=== PATIENT | female | born 1985 | race Caucasian/White ===

== ENCOUNTER 2020-01-11 16:27 | Emergency (ER) | payer MEDICAID, SELFPAY ==
[2020-01-11 16:46] VITALS: BP 128/80; PULSE 92; RESP 16; TEMP 37.6; O2SAT 100
--- NOTE | 2020-01-11 16:58 | ED.DENTAL ---
HPI - Dental/Oral General Chief complaint: Dental/Oral Stated complaint: TOOTH PAIN Time Seen by Provider: 01/11/20 16:58 Source: patient and RN notes reviewed Mode of arrival: ambulatory Limitations: no limitations History of Present Illness HPI Narrative: This is a 34 years old female presents to the office for an evaluation of dental pain for a couple days. Patient states her with the same tooth that has been bothering her however she thinks, she chipped it after she ate. She does not have a dentist at the moment. She tried Advil for pain with no relief. Related Data Home Medications Medication Instructions Recorded Confirmed albuterol sulfate [Ventolin HFA] 1 inh INHALATION QID 01/11/20 01/11/20 Allergies Allergy/AdvReac Type Severity Reaction Status Date / Time No Known Allergies Allergy Verified 01/11/20 17:00 Review of Systems Review of Systems: Narrative: CONSTITUTIONAL: Denies fever or chills ENT: Reports dental pain CARDIOVASCULAR: Denies chest pain, palpitation, edema. RESPIRATORY: Denies dyspnea, wheezing, cough GASTROINTESTINAL: Denies abdominal pain, nausea, vomiting. Reports no appetite due to dental pain SKIN: Denies rash MUSCULOSKELETAL: Denies acute back pain NEUROLOGIC: Denies lightheaded All other systems reviewed are negative, except as documented in HPI. [facility] Past Medical History Medical History Asthma Social History Social History Smoking status: Current every day smoker Gender identity (if verbalized by the patient): Female Comments At time of signature, I agree with nursing past medical, surgical, social and family history. There is no relevant family history pertinent to the presenting complaint. Exam Narrative: Exam Narrative: GENERAL: This is a well-nourished, well-developed patient, in no apparent distress. EYES: Sclera and conjunctivae normal ENT: External ears normal. Nose and lips normal. Airway patent.The right lower first molar is very carious and the gum is swollen and tender around it. There is slight right side facial swelling without cervical or submandibular lymphadenopathy. The patient appears uncomfortable and in pain. CARDIOVASCULAR: Regular rate and rhythm without murmurs, gallops, or rubs. RESPIRATORY: Clear to auscultation. Breath sounds equal bilaterally. No wheezes, rales, or rhonchi. GASTROINTESTINAL: Abdomen soft, non-tender, nondistended. Bowel sounds are active. No hepato-splenomegaly, or palpable masses. No guarding. SKIN: warm, intact with no suspicious lesions or rash, good texture and turgor. NEURO: awake, alert, and oriented to person, place and time. There were no obvious focal neurologic abnormalities. Course Vital Signs Vital signs: Vital Signs Temperature 99.7 F H 01/11/20 16:46 Pulse Rate 92 01/11/20 16:46 Respiratory Rate 16 01/11/20 16:46 Blood Pressure 128/80 01/11/20 16:46 Pulse Oximetry 100 01/11/20 16:46 Temperature 99.7 F H 01/11/20 16:46 Pulse Rate 92 01/11/20 16:46 Respiratory Rate 16 01/11/20 16:46 Blood Pressure 128/80 01/11/20 16:46 Pulse Oximetry 100 01/11/20 16:46 MDM - Dental/Oral MDM Narrative Medical decision making narrative: Discharge instructions reviewed with patient, as well as provided in writing per nursing staff. The instructions also include specific and strict return/GO TO THE ER as well as f/u information. All questions have been answered, and the patient deny any further questions with discharge and discharge plan. Differential Diagnosis Differential diagnosis: Likely gingival abscess, dental caries, toothache, dental abscess, fracture of tooth and aphthous ulcer Critical Care Time Critical Care Time Critical Care Time: No Discharge Plan Discharge Clinical Impression: Toothache Patient Disposition: Home, Self-Care Condition: Stable I
== END 2020-01-11 17:08 | disposition home or self-care (01) ==
PROVIDERS: Emergency Provider Nurse Practitioner
DX: K08.9 Disorder of teeth and supporting structures, unspecified (principal); F17.200 Nicotine dependence, unspecified, uncomplicated; J45.909 Unspecified asthma, uncomplicated
CPT/HCPCS: 99213; G0463

== ENCOUNTER 2020-05-05 12:32 | Outpatient (CLI) | payer OTHER, SELFPAY ==
[2020-05-05 13:02] LABS: Hematocrit 39.1 % (37.0-47.0); Hemoglobin 13.7 g/dL (12.0-15.0)
== END 2020-05-05 12:33 | disposition home or self-care (01) ==
LOC: ANHLAB 12:34
PROVIDERS: Visit Provider Obstetrics & Gynecology
DX: R10.2 Pelvic and perineal pain (principal)
CPT/HCPCS: 36415; 85014; 85018; 86850; 86900; 86901

== ENCOUNTER 2020-05-09 04:03 | Outpatient (CLI) | payer OTHER, SELFPAY ==
[2020-05-09 19:05] LABS: SARS-CoV-2 RNA PCR Negative
== END 2020-05-09 04:04 | disposition home or self-care (01) ==
LOC: ANHCOVIDDT 04:03
PROVIDERS: Visit Provider Obstetrics & Gynecology
DX: Z01.812 Encounter for preprocedural laboratory examination (principal); Z20.828 Contact with and (suspected) exposure to other viral communicable diseases
CPT/HCPCS: 87635; C9803; U0003

== ENCOUNTER 2020-05-11 01:01 | Day surgery (SDC) | payer OTHER, SELFPAY ==
[2020-05-04 11:46] VITALS: BMI 26.9
--- NOTE | 2020-05-09 07:56 | PM.IMHP ---
H&P: HPI History of Present Illness Date/Time: 05/09/20 07:56 Chief complaint: Pelvic Pain,Endometriosis, Uterine Fibroid Narrative: Natasha Lin is a 34 year old female is admitted for diagnostic laparoscopy hysteroscopy dilatation curettage. She complains of chronic and severe pelvic pain. Irregular periods. She has a known history of endometriosis and uterine fibroid. Risks and benefits reviewed in full Review of Systems Review of Systems: All systems reviewed & are unremarkable except as noted in HPI and below PMFSH Past Medical History Medical History Asthma Social History Social History Smoking packs per day: 1 Smoking cigarettes per day: 20.0 Years smoked: 15 Smoking pack-years: 15.00 Smoking status: Current every day smoker Tobacco type: cigarettes Alcohol intake: current Drinks per week: 2 Gender identity (if verbalized by the patient): Female Spiritual care concerns: No Meds Home Medications and Allergies Home Medications Medication Instructions Recorded Confirmed Type albuterol sulfate [Ventolin HFA] 1 inh INHALATION QID PRN 01/11/20 05/04/20 History lidocaine HCl [Lidocaine Viscous] 1 applic MUCOUS MEM QID PRN #100 ml 01/11/20 05/04/20 Rx hydrocodone-acetaminophen 1 - 2 tablet PO Q4H 05/04/20 05/04/20 History Allergies Allergy/AdvReac Type Severity Reaction Status Date / Time No Known Allergies Allergy Verified 05/04/20 11:48 Exam Const: General: no acute distress Eyes: General: appearance normal, both eyes and all related structures Neck: Neck: supple and no JVD Thyroid: thyroid normal Resp: Effort & Inspection: normal respiratory effort Auscultation: clear to auscultation bilaterally Cardio: Rate: regular rate Rhythm: regular rhythm GI: Inspection: non-distended GI Palp: Yes Soft to palpation, No Tenderness to palpation present (GI) and No Guarding due to palpation present (GI) Auscultation: normal bowel sounds : General: Yes bladder normal to palpation External Female Exam: normal external appearance Speculum Exam - Vagina: normal vaginal discharge and No vaginal bleeding Speculum Exam - Cervix: Cervical os closed and nontender Bimanual exam- vagina & uterus: bladder normal to palpation, No Cervical tenderness present and Uterine tenderness Bimanual Exam- Adnexa, other: tender OB/external & speculum: No vaginal bleeding Skin: General skin exam: no rashes or lesions noted Extrem: General: normal to inspection and no edema Psych: Mental Status: mental status grossly normal Affect: normal affect Assessment and Plan Additional Plan impression: Pelvic pain and bleeding layer Plan: Laparoscopy/hysteroscopy / dilatation and curettage
[2020-05-11] VITALS (10 sets, daily range): BP systolic 99–135; BP diastolic 56–77; PULSE 59–96; RESP 12–18; TEMP 36.7–37.4; O2SAT 94–100
--- NOTE | 2020-05-11 06:38 | WPDHPUPDATE1 ---
History and Physical Update Update Date/Time: 05/11/20 06:38 History and Physical has been reviewed, including an updated exam of the patient. There are NO changes in the patient's condition. Risks, benefits, and alternatives have been discussed and questions answered. Patient agrees to proceed with procedure.
--- NOTE | 2020-05-11 06:39 | WPDHPUPDATE1 ---
History and Physical Update Update Date/Time: 05/11/20 06:39 History and Physical has been reviewed, including an updated exam of the patient. There are NO changes in the patient's condition. Risks, benefits, and alternatives have been discussed and questions answered. Patient agrees to proceed with procedure.
--- NOTE | 2020-05-11 08:25 | WPDANESEPPF ---
Anes - Initial Pre Proc Eval Procedure: Operation Date: 05/11/20 09:30 Proposed Procedures p Diagnostic Laparoscopy, Hysteroscopy, Dilation And Curettage - Spenser Arechiga MD Date/Time: 05/11/20 08:25 Surgeon: Spenser Arechiga MD Pre Op Diagnosis: Pelvic Pain,Endometriosis, Uterine Fibroid Patient Data Age: 34 Gender: F Height: 5 ft 5 in Weight: 73.48 kg Allergies Allergy/AdvReac Type Severity Reaction Status Date / Time No Known Allergies Allergy Verified 05/04/20 11:48 Home Medications Medication Instructions Recorded Confirmed Type albuterol sulfate [Ventolin HFA] 1 inh INHALATION QID PRN 01/11/20 05/04/20 History lidocaine HCl [Lidocaine Viscous] 1 applic MUCOUS MEM QID PRN #100 ml 01/11/20 05/04/20 Rx hydrocodone-acetaminophen 1 - 2 tablet PO Q4H 05/04/20 05/04/20 History hydrocodone-acetaminophen 1 tablet PO Q6H PRN #30 tablet 05/11/20 Rx Patient hx anesthesia problems: none Family hx anesthesia problems: none PMFSH Past Medical History Medical History Asthma Smoker Surgical History Surgical History (Updated 05/11/20 @ 08:25 by Spenser Noland MD) H/O laparoscopy Social History Social History Smoking packs per day: 1 Smoking cigarettes per day: 20.0 Years smoked: 15 Smoking pack-years: 15.00 Smoking status: Current every day smoker Tobacco type: cigarettes Alcohol intake: current Drinks per week: 2 Gender identity (if verbalized by the patient): Female Spiritual care concerns: No Anes - Eval Final PreProcedure Day of Procedure 05/11/20 08:25 Patient weight: overweight Heart: regular rate and rhythm Lungs: clear to auscultation Airway: Mallampati scale class II Neurological: alert and oriented Last oral intake: >/= 8 hours ASA classification: II Emergent: no Anesthetic plan: proceed Anesthesia type and monitoring: general ETT and standard monitoring Informed Consent: The patient's anesthetic plan and its attendant risks and benefits were discussed with the patient/family/POA. Questions were solicited and answers provided to the satisfaction of the patient/family/POA.
[2020-05-11] MEDS: LACTATED RINGERS 1,000 ML 30 ML IV CONT (08:26)
[2020-05-11] MEDS: KETOROLAC 15 MG/ML VIAL (*BKC) IV PUSH (08:27)
[2020-05-11] MEDS: ACETAMINOPHEN 500 MG TABLET 1000 MG PO (08:27)
[2020-05-11] MEDS: fentaNYL CITRATE INJ (*CRX) 100 MCG/2 ML VIAL 50 MCG IV PUSH (09:25)
--- NOTE | 2020-05-11 09:52 | P.OP_ITS ---
Procedure Note - Detailed Date of procedure: 05/11/20 Pre-op diagnosis: Pelvic Pain,Endometriosis, Uterine Fibroid Surgeon: Spenser Arechiga MD Postop diagnosis: Pelvic pain / endometriosis/ uterine fibroids/ bilateral ovarian cysts / bleeding refractory to medical therapy Procedure: Laparoscopy/ destruction of bilateral ovarian cysts/destruction of endometriosis / hysteroscopy/ dilatation curettage Anesthesia: General endotracheal EBL: 5Cc Complications: None Findings: On laparoscopy: Bilateral ovarian endometriosis was seen. Benign ovarian cysts on each ovary. Tubes were status post tubal ligation bilaterally. Moderate size fibroid uterus was seen. Powder burn endometriosis lesion on the left uterus sacral. There was normal-appearing gallbladder and liver edge. On hysteroscopy: Thick irregular endometrial tissue was seen. Each fallopian tube os could be seen was normal Description procedure. : The patient was prepped draped in the normal sterile fashion placed in the dorsal lithotomy position. Under excellent general tracheal anesthesia weighted speculum placed in posterior fornix of vagina. Anterior lip of the cervix was grasped with a single-tooth tenaculum. The Corona's cannula was inserted to the cervix and attached to the single-tooth. Bladder was emptied of about 25cc of gretel colored urine. The remainder the instruments removed. Gloves were changed. Infraumbilical incision was made. The Veress needle was passed in the abdomen. The abdomen was filled with CO2 gas [id number]. 5Mm trocar was advanced under direct visualization in the abdomen assuring no injury the patient placed in Trendelenburg. A suprapubic incision made the 5mm trocar advanced in the a bdomen under direct visualization assuring injury the above findings were seen irrigation was undertaken. The areas of endometriosis on each ovary were cauterized at 35 w per 2nd with monopolar cautery. The endometrial implant on the left uterus sacral ligament was burned and 35 w per 2nd with excellent desiccation. Irrigation was undertaken until clear after the ovaries were opened other small benign ovarian cyst. No other abnormalities were seen in photo documentation was had been undertaken. The lower site was removed after gas removed from the abdomen. The upper site was then removed. The incisions closed with 4 O Monocryl and glue. The hysteroscopic portion was undertaken by sounded the uterus to 8cm. Serial dilatation with fragmented dilators performed, this was followed by passage of the 5mm hysteroscope using normal saline as visualizing medium. Thick irregular endometrial tissue was seen but no definitive pathology was seen. Each fallopian tube os could be seen. The uterus was then scraped over the entire 360? removing a moderate amount of clot tissue. When a good grating sound was heard the procedure was terminated. The instruments removed from vagina. Blood loss was estimated 25cc. The patient was awakened and went to recovery in satisfactory condition. All sponge, needle, instrument counts were correct. There were no immediate complications
--- NOTE | 2020-05-11 09:55 | SUR.OPER ---
Ebl=5ml
[2020-05-11] MEDS: fentaNYL CITRATE INJ (*CRX) 100 MCG/2 ML VIAL 25 MCG IV PUSH ×3 (10:03→10:12)
[2020-05-11] MEDS: HYDROmorphone HCL INJ (*CRX) 1 MG/ML SYR 0.5 MG IV PUSH ×5 (10:18→10:49)
[2020-05-11] MEDS: oxyCODONE HCL (*CRX) 5 MG TAB IR PO (11:12)
== END 2020-05-11 12:25 | disposition home or self-care (01) ==
PROVIDERS: Visit Provider Obstetrics & Gynecology
PROC: 0UDB8ZZ Extraction of Endometrium, Via Natural or Artificial Opening Endoscopic (ICD-10-PCS; CPT 58558; principal; 2020-05-11 09:30)
DX: R10.2 Pelvic and perineal pain (principal); D25.9 Leiomyoma of uterus, unspecified; N83.202 Unspecified ovarian cyst, left side; N83.201 Unspecified ovarian cyst, right side; N93.9 Abnormal uterine and vaginal bleeding, unspecified; N80.3 Endometriosis of pelvic peritoneum; J45.909 Unspecified asthma, uncomplicated; F17.210 Nicotine dependence, cigarettes, uncomplicated
CPT/HCPCS: 58558; 58662; 88305; A9270; J0330; J1100; J1170; J1885; J2250; J2590; J2704; J3010; J7030; J7120

== ENCOUNTER 2020-07-21 12:46 | Outpatient (CLI) | payer OTHER, SELFPAY ==
[2020-07-21 13:24] LABS: Hematocrit 38.1 % (37.0-47.0); Hemoglobin 13.5 g/dL (12.0-15.0)
== END 2020-07-21 12:47 | disposition home or self-care (01) ==
PROVIDERS: Visit Provider Obstetrics & Gynecology
DX: Z01.818 Encounter for other preprocedural examination (principal); N93.9 Abnormal uterine and vaginal bleeding, unspecified
CPT/HCPCS: 36415; 85014; 85018; 86850; 86900; 86901

== ENCOUNTER 2020-07-24 00:34 | Outpatient (CLI) | payer OTHER, SELFPAY ==
[2020-07-24 19:42] LABS: SARS-CoV-2 RNA PCR Negative
== END 2020-07-24 00:35 | disposition home or self-care (01) ==
LOC: ANHCOVIDDT 00:34
PROVIDERS: Visit Provider Obstetrics & Gynecology
DX: Z01.812 Encounter for preprocedural laboratory examination (principal); Z20.822 Contact with and (suspected) exposure to COVID-19
CPT/HCPCS: C9803; U0003

== ENCOUNTER 2020-07-27 00:16 | Day surgery (SDC) | payer OTHER, SELFPAY ==
[2020-07-17 13:00] VITALS: BMI 26.6
--- NOTE | 2020-07-25 09:01 | PM.IMHP ---
H&P: HPI History of Present Illness Date/Time: 07/25/20 09:01 Chief Complaint: pain/bleeding Narrative: Natasha Lin is a 35 year old female 1 para 1 status post tubal ligation is admitted for robotic total vaginal hysterectomy left salpingo-oophorectomy and right salpingectomy. She has an enlarged uterus with bleeding and fibroids that had been refractory to medical therapy. There is also a large left ovarian cyst risks and benefits reviewed including but not exclusive of , aspiration pneumonia, bleeding, transfusion, perforation injury to bowel, bladder, ureters, or other internal organs with need for open laparotomy. She received the [employer] handout entitled hysterectomy as well as div eg handout. She signed the [facility] department of [facility] hysterectomy formed. She had all questions answered. She asked to proceed Review of Systems Review of Systems: All systems reviewed & are unremarkable except as noted in HPI and below PMFSH Past Medical History Medical History Asthma Smoker Surgical History Surgical History H/O laparoscopy Social History Social History Smoking packs per day: 1 Smoking cigarettes per day: 20.0 Years smoked: 16 Smoking pack-years: 16.00 Smoking status: Current every day smoker Tobacco type: cigarettes Alcohol intake: never Drinks per week: 2 Substance use: never Gender identity (if verbalized by the patient): Female Spiritual care concerns: No Meds Home Medications and Allergies Home Medications Medication Instructions Recorded Confirmed Type albuterol sulfate [Ventolin HFA] 1 inh INHALATION PRN PRN 01/11/20 07/17/20 History hydrocodone-acetaminophen 1 - 2 tablet PO Q4H 05/04/20 07/17/20 History lidocaine HCl [Lidocaine Viscous] 1 applic MUCOUS MEM PRN PRN 07/17/20 07/17/20 History Allergies Allergy/AdvReac Type Severity Reaction Status Date / Time No Known Allergies Allergy Verified 07/17/20 13:14 Exam Const: General: no acute distress Eyes: General: appearance normal, both eyes and all related structures Neck: Neck: supple and no JVD Thyroid: thyroid normal Resp: Effort & Inspection: normal respiratory effort Auscultation: clear to auscultation bilaterally Cardio: Rate: regular rate Rhythm: regular rhythm GI: Inspection: non-distended GI Palp: Yes Soft to palpation, No Tenderness to palpation present (GI) and No Guarding due to palpation present (GI) Auscultation: normal bowel sounds : General: Yes bladder normal to inspection External Female Exam: normal external appearance Speculum Exam - Vagina: normal appearance of the vagina Speculum Exam - Cervix: normal appearance of the cervix Bimanual exam- vagina & uterus: boggy, cervical motion tenderness and enlarged Bimanual Exam- Adnexa, other: tender (left ) on the left Skin: General skin exam: no rashes or lesions noted Extrem: General: normal to inspection and no edema Psych: Mental Status: mental status grossly normal Affect: normal affect Assessment and Plan Additional Plan impression: Enlarged uterus fibroids and left ovarian cyst Plan: Robotic total vaginal hysterectomy right salpingectomy and left salpingo-oophorectomy
[2020-07-27] VITALS (17 sets, daily range): BP systolic 101–126; BP diastolic 51–83; PULSE 58–88; RESP 12–20; TEMP 36.8–37.5; O2SAT 93–100
--- NOTE | 2020-07-27 06:10 | WPDHPUPDATE1 ---
History and Physical Update Update Date/Time: 07/27/20 06:10 History and Physical has been reviewed, including an updated exam of the patient. There are NO changes in the patient's condition. Risks, benefits, and alternatives have been discussed and questions answered. Patient agrees to proceed with procedure.
[2020-07-27] MEDS: ACETAMINOPHEN 500 MG TABLET 1000 MG PO (07:55)
--- NOTE | 2020-07-27 07:56 | WPDANESEPPF ---
Anes - Initial Pre Proc Eval Procedure: Operation Date: 07/27/20 09:30 Proposed Procedures p Robotic Assisted Total Vaginal Hysterectomy, Left Salpingo-Oophorectomy, Right Salpingectomy - Spenser Arechiga MD Date/Time: 07/27/20 07:56 Surgeon: Spenser Arechiga MD Pre Op Diagnosis: Pelvic Pain, Enlarged Uterus, Fibroid,L Ovarian Cy Patient Data Age: 35 Gender: F Height: 1.65 m Weight: 74 kg Allergies Allergy/AdvReac Type Severity Reaction Status Date / Time No Known Allergies Allergy Verified 07/27/20 07:51 Home Medications Medication Instructions Recorded Confirmed Type albuterol sulfate [Ventolin HFA] 1 inh INHALATION PRN PRN 01/11/20 07/27/20 History hydrocodone-acetaminophen 1 - 2 tablet PO Q4H 05/04/20 07/27/20 History hydrocodone-acetaminophen [[place]] 1 tablet PO Q4H PRN #30 tablet 07/27/20 Rx Patient hx anesthesia problems: none Family hx anesthesia problems: none PMFSH Past Medical History Medical History Anxiety Asthma Endometriosis Smoker Surgical History Surgical History (Updated 07/26/20 @ 11:54 by Eron Mckenna DO) H/O laparoscopy History of tubal ligation Social History Social History Smoking packs per day: 1 Smoking cigarettes per day: 20.0 Years smoked: 16 Smoking pack-years: 16.00 Smoking status: Current every day smoker Tobacco type: cigarettes Alcohol intake: never Drinks per week: 2 Substance use: never Living arrangements: with family Gender identity (if verbalized by the patient): Female Spiritual care concerns: No Anes - Eval Final PreProcedure Day of Procedure 07/27/20 07:56 Patient weight: overweight Heart: regular rate and rhythm Lungs: clear to auscultation and normal air movement Airway: Mallampati scale class II Neurological: alert and oriented Last oral intake: >/= 8 hours ASA classification: III Emergent: no Anesthetic plan: proceed Anesthesia type and monitoring: general ETT and standard monitoring Informed Consent: The patient's anesthetic plan and its attendant risks and benefits were discussed with the patient/family/POA. Questions were solicited and answers provided to the satisfaction of the patient/family/POA.
[2020-07-27] MEDS: LACTATED RINGERS 1,000 ML 30 ML IV CONT ×2 (08:04→10:18)
[2020-07-27] MEDS: KETOROLAC 15 MG/ML VIAL (*BKC) IV PUSH (08:06)
[2020-07-27] MEDS: fentaNYL CITRATE INJ (*CRX) 100 MCG/2 ML VIAL 25 MCG IV PUSH ×5 (08:09→11:14)
--- NOTE | 2020-07-27 08:20 | SUR.PREOP ---
pt anxious and complains abd pain dr estrella aware,fentanyl given without relief, versed given,
[2020-07-27] MEDS: MIDAZOLAM HCL (*CRX) 2 MG/2 ML VIAL IV PUSH (08:24)
[2020-07-27] MEDS: ceFAZolin 2 GM/D5W 50 ML 2 GM/50 ML BAG IVPB (08:53)
--- NOTE | 2020-07-27 10:05 | P.OP_ITS ---
Procedure Note - Detailed Date of procedure: 07/27/20 Pre-op diagnosis: Pelvic Pain, Enlarged Uterus, Fibroid,L Ovarian Cy Surgeon: Spenser Arechiga MD Postop diagnosis: Pelvic pain/enlarged uterus/uterine fibroid/left ovarian cyst Procedure: Robotic total vaginal hysterectomy and right salpingectomy, left s alpingo-oophorectomy EBL: 250cc Anesthesia: General endotracheal Complications: None Findings: Enlarged uterus, left ovarian cyst. Tubes status post tubal ligation Procedure description: The patient was prepped and draped in the normal sterile fashion and placed in the dorsal lithotomy position. Under excellent general endotracheal anesthesia weighted speculum was placed in the posterior fornix of vagina. The anterior lip of the cervix was grasped with a single-tooth tenaculum and the uterus sounded to 10cm. Serial dilatation with fragmented dilators performed followed by passage of the 8. NATE and the 3. Cold cup. A 16 Cym[place] catheter was placed. The weighted speculum was removed. The gloves were changed. A supraumbilical incision made in the Veress needle passed in the abdomen. The abdomen filled with CO2 gas [id number]. The 8mm trocar advanced in the abdomen and the downside visualized. No injury was seen. The patient placed in Trendelenburg and right and left lateral quadrant incisions made. The 8mm trocars advanced under direct visualization with no injury. A right upper quadrant incision made in the 10mm trocar advanced under direct visualization with no injury. The robot was docked. Attention was turned to the child welfare counselor. The left round ligament was grasped, burned, cut. A bladder flap was formed by sharply dissecting and reflecting it caudally to the opposite round ligament which was clamped, burned, cut. Next the left infundibulopelvic structure was skeletonized to remove the left ovary and tube this was clamped, burned, cut. This was brought to the level of previously cut round ligament. Next the right fallopian tube was sharply dissected to its origin in the uterus to be taken with that specimen. The right utero-ovarian ligament to conserve the right ovary was clamped, burned, cut and brought to the level of previously cut round ligament. The cardinal and broad ligaments were then serially skeletonized on the left down lateral edge of the uterus they were clamped, burned, cut. These were brought until the tortuous large blood vessels on the left were visualized these were individually clamped, burned, cut. In like fashion the cardinal and broad ligaments on the right were serially skeletonized. These were clamped, burned, cut and brought down the lateral edge of the uterus. Uterine vessels on the right were also large and tortuous and individually clamped, burned, cut. Blanching of the uterus was seen. A colpotomy incision was made and the cervix uterus tubes and left ovary removed through the vagina. Blood loss estimated 250cc. The vagina was closed with continuous running 0V lock from lateral edge to lateral edge back to the midline. Irrigation undertaken until clear. The raw surface area then sprink led with hematuria. Hemostasis was assured. The robot was undocked. The gas removed from the abdomen. The trocars then removed. The incisions closed with 4 Monocryl glue. The patient was awakened. All sponge, needle, instrument counts were correct. There were no immediate complications
[2020-07-27] MEDS: MIDAZOLAM HCL (*CRX) 2 MG/2 ML VIAL 1 MG IV PUSH (10:28)
[2020-07-27] MEDS: DEXTROSE 5%/LACTATED RINGERS 1,000 ML 125 ML IV CONT (12:07)
[2020-07-27] MEDS: MORPHINE SULFATE (*CRX) 4 MG/ML INJ IV PUSH (12:11)
--- NOTE | 2020-07-27 12:24 | ADMGEN ---
This patient, Natasha Lin, was admitted to OB 2nd Floor Room 289-00. Patient oriented to hospital policies and general routines including ID bracelet, bed and alarms, visiting hours, pain management, procedures, bathroom and other care routines, personal items, smoking policy, room service/diet, and visiting hours. Information on how to activate the Rapid Response Team has been discussed. Patient/Family are encouraged to report perceived risks to care and to ask questions if they do not understand what they are told or what they should do.
[2020-07-27] MEDS: DOCUSATE SODIUM 100 MG CAPSULE PO (17:04)
[2020-07-27] MEDS: IBUPROFEN 600 MG TABLET PO (17:07)
[2020-07-27] MEDS: HYDROcodone/acetaminophen (*CRX) 10-325 MG TABLET 1 TAB PO ×2 (17:07→19:54)
--- NOTE | 2020-07-27 19:18 | P.DS_ITS ---
DS: Admitting Diagnosis Admitting Diagnosis Admitting Diagnosis: bleeding/pain DS: Summary Hospital Course Hospital Course: Her hospital course was unremarkable Time Spent with Patient Time attestation: Total time spent providing and/or coordinating discharge services: The patient was admitted for robotic total vaginal hysterectomy and bilateral salpingectomy. Her hospital course was unremarkable. She remained afebrile. Vital signs were stable. She was up, voiding without difficulty, passing gas, eating, and generally without complaints. I had suggested that she stay to the morning but she insisted she would like to go home tonight. She was discharged home and given routine discharge instructions. Exam Const: General: no acute distress Eyes: General: appearance normal, both eyes and all related structures Neck: Neck: supple and no JVD Thyroid: thyroid normal Resp: Effort & Inspection: normal respiratory effort Auscultation: clear to auscultation bilaterally Cardio: Rate: regular rate Rhythm: regular rhythm GI: Inspection: non-distended GI Palp: Yes Soft to palpation, No Tenderness to palpation present (GI) and No Guarding due to palpation present (GI) Auscultation: normal bowel sounds : General: Yes bladder normal to palpation External Female Exam: normal external appearance Speculum Exam - Vagina: normal vaginal discharge and No vaginal bleeding Speculum Exam - Cervix: nontender Bimanual exam- vagina & uterus: bladder normal to palpation and No Cervical tenderness present OB/ext ernal & speculum: No vaginal bleeding Skin: General skin exam: no rashes or lesions noted Extrem: General: normal to inspection and no edema Psych: Mental Status: mental status grossly normal Affect: normal affect DS: Data Data Completed and Pending Pending studies at discharge: Pending at discharge 07/27/20 09:35 Surgical [PTH] Routine Discharge Plan Discharge Patient Disposition: Home, Self-Care Stand Alone Forms: General Discharge Instructions Follow-up/Referrals: Spenser Arechiga MD [Physician] - Discharge Medications: New hydrocodone-acetaminophen [Brutus] 5-325 mg tablet 1 tablet PO Q4H PRN (Reason: pain) Qty: 30 RF: 0 Continued albuterol sulfate [Ventolin HFA] 90 mcg/actuation Hfa Aerosol Inhaler 1 inh INHALATION PRN PRN (Reason: Shortness Of Breath) RF: 0 hydrocodone-acetaminophen 5-325 mg tablet 1 - 2 tablet PO Q4H RF: 0
== END 2020-07-27 20:28 | disposition home or self-care (01) ==
LOC: ANHSURGERY 10:28 → ANHOB2 11:29
PROVIDERS: Visit Provider Obstetrics & Gynecology
PROC: (CPT 58552; principal; 2020-07-27 09:30)
DX: N93.9 Abnormal uterine and vaginal bleeding, unspecified (principal); N80.1 Endometriosis of ovary; N83.12 Corpus luteum cyst of left ovary; F17.210 Nicotine dependence, cigarettes, uncomplicated; Z79.51 Long term (current) use of inhaled steroids; N73.6 Female pelvic peritoneal adhesions (postinfective)
CPT/HCPCS: 58552; S2900; 88307; 99199; A9270; J0690; J1100; J1170; J1200; J1885; J2250; J2270; J2405; J2704; J2710; J3010; J7030; J7120; J7121

== ENCOUNTER 2022-01-31 00:45 | Day surgery (SDC) | payer OTHER, SELFPAY ==
[2022-01-17 13:08] VITALS: BMI 26.4
--- NOTE | 2022-01-30 15:37 | WPDANESEPPF ---
Anes - Initial Pre Proc Eval Procedure: Operation Date: 01/31/22 12:30 Proposed Procedures p Colonoscopy - Manuel Mantilla MD Date/Time: 01/30/22 15:37 Surgeon: Manuel Mantilla MD Pre Op Diagnosis: stomach pain, chronic diarrhea Patient Data Age: 36 Gender: F Height: 1.65 m Weight: 72 kg Allergies Allergy/AdvReac Type Severity Reaction Status Date / Time No Known Allergies Allergy Verified 01/31/22 11:17 Home Medications Medication Instructions Recorded Confirmed Type albuterol sulfate 90 mcg/actuation 1 inh inhalation PRN PRN Shortness 01/11/20 01/31/22 History aerosol inhaler (Ventolin HFA) Of Breath Patient hx anesthesia problems: none Family hx anesthesia problems: none Results Review: All pre-operative results and documents have been reviewed as part of the pre-operative evaluation. [facility] Past Medical History Medical History Anxiety Asthma Endometriosis Smoker Surgical History Surgical History (Updated 07/26/20 @ 11:54 by Eron Mckenna DO) H/O laparoscopy History of tubal ligation Social History Social History Smoking packs per day: 0.5 Smoking cigarettes per day: 10.0 Years smoked: 17 Smoking pack-years: 8.50 Smoking status: Current every day smoker Tobacco type: cigarettes Alcohol intake: current Drinks per week: 2 Substance use: never Substance use type: does not use Living arrangements: with friend(s) Additional living arrangements comments: boyfriend and daughter Gender identity (if verbalized by the patient): Female Spiritual care concerns: No Anes - Eval Final PreProcedure Day of Procedure 01/30/22 15:37 Patient weight: overweight Heart: regular rate and rhythm Lungs: clear to auscultation Airway: Mallampati scale class II Neurological: alert and oriented Last oral intake: >/= 8 hours ASA classification: II Emergent: no Anesthetic plan: proceed Anesthesia type and monitoring: general GIVS and standard monitoring Results Review: All pre-operative results and documents have been reviewed as part of the pre-operative evaluation. Informed Consent: The patient's anesthetic plan and its attendant risks and benefits were discussed with the patient/family/POA. Questions were solicited and answers provided to the satisfaction of the patient/family/POA.
[2022-01-31 11:18] VITALS: BP 132/87; PULSE 73; RESP 17; TEMP 36.2; O2SAT 100
[2022-01-31] MEDS: LACTATED RINGERS 1,000 ML 150 ML IV CONT (11:27)
--- NOTE | 2022-01-31 12:36 | PM.HPGS ---
History of Present Illness History of Present Illness Consent: Risks, benefits, and alternatives have been discussed and questions answered. Patient agrees to proceed with procedure. Chief complaint: stomach pain, chronic diarrhea Narrative: Natasha Lin is a 36 year old female with intermittent abdominal pain, worse after hysterectomy (it was done because endometriosis), also loose stools. Never had colonoscopy Review of Systems Constitutional: Constitutional: Denies headache(s) and Denies weakness Eyes: Eyes: Denies blurry vision ENT: Reports Normal hearing present, Denies headache(s) and Denies neck pain Cardiovascular: Cardiovascular: Denies chest pain and Denies dyspnea Respiratory: Respiratory: Denies dyspnea Gastrointestinal: Gastrointestinal: Reports no additional gastrointestinal complaints Genitourinary: Genitourinary: Denies dysuria Musculoskeletal: Musculoskeletal: Denies neck pain Integumentary/Breasts: Skin/Breast: Denies dry skin Neurologic: Reports Normal hearing present, Denies headache(s) and Denies weakness Psychiatric: Psychiatric: Denies anxiety Endocrine: Endocrine: Denies change in body appearance Hematologic/Lymphatic: Hematologic/Lymphatic: Denies easy bleeding Allergic/Immunologic: Allergic/Immunologic: Denies urticaria PMFSH Past Medical History Medical History Abdominal pain Anxiety Asthma Diarrhea Endometriosis Smoker Surgical History Surgical History (Updated 07/26/20 @ 11:54 by Eron Mckenna DO) H/O laparoscopy History of tubal ligation Social History Social History Smoking packs per day: 0.5 Smoking cigarettes per day: 10.0 Years smoked: 17 Smoking pack-years: 8.50 Smoking status: Current every day smoker Tobacco type: cigarettes Alcohol intake: current Drinks per week: 2 Substance use: never Substance use type: does not use Living arrangements: with friend(s) Additional living arrangements comments: boyfriend and daughter Gender identity (if verbalized by the patient): Female Spiritual care concerns: No Meds Home Medications and Allergies Home Medications Medication Instructions Recorded Confirmed Type albuterol sulfate 90 mcg/actuation 1 inh inhalation PRN PRN Shortness 01/11/20 01/31/22 History aerosol inhaler (Ventolin HFA) Of Breath Allergies Allergy/AdvReac Type Severity Reaction Status Date / Time No Known Allergies Allergy Verified 01/31/22 11:17 Vital Signs Vital Signs - 24 hr 01/31/22 11:18 Temperature 97.2 F L Pulse Rate 73 Respiratory Rate 17 Blood Pressure 132/87 Pulse Oximetry 100 Oxygen Delivery Room Air Exam Const: General: comfortable and no acute distress HENMT: General nose exam: Normal nares present Eyes: General: appearance normal, both eyes and all related structures Neck: Neck: no JVD Resp: Auscultation: clear to auscultation bilaterally Cardio: Rate: regular rate Rhythm: regular rhythm GI: Inspection: non-distended GI Palp: Yes Soft to palpation Skin: General skin exam: normal color Neuro: General: gait normal Speech: normal speech Extrem: General: normal to inspection Psych: Mental Status: mental status grossly normal Assessment and Plan Assessment and plan (1) Abdominal pain: Code(s): R10.9 - Unspecified abdominal pain Status: Acute Assessment and Plan: will assess with colonoscopy and consider random colon bx (2) Diarrhea: Code(s): R19.7 - Diarrhea, unspecified Status: Acute
[2022-01-31 13:08] VITALS: BP 127/85; PULSE 64; RESP 15; O2SAT 100
[2022-01-31 13:18] VITALS: BP 124/81; PULSE 53; RESP 19; O2SAT 100
[2022-01-31 13:28] VITALS: BP 112/77; PULSE 52; RESP 16; O2SAT 100
== END 2022-01-31 13:40 | disposition home or self-care (01) ==
PROVIDERS: PCP Family Medicine; Referring Provider Obstetrics & Gynecology; Visit Provider Internal Medicine Gastroenterology
PROC: 0DJD8ZZ Inspection of Lower Intestinal Tract, Via Natural or Artificial Opening Endoscopic (ICD-10-PCS; CPT 45378; principal; 2022-01-31 12:30)
DX: R10.30 Lower abdominal pain, unspecified (principal); R19.7 Diarrhea, unspecified; K64.8 Other hemorrhoids; J45.909 Unspecified asthma, uncomplicated; Z79.51 Long term (current) use of inhaled steroids; F17.210 Nicotine dependence, cigarettes, uncomplicated
CPT/HCPCS: 45380; 88305; J2704; J7120

== ENCOUNTER 2022-10-17 17:27 | Observation (INO) | payer OTHER, SELFPAY ==
[2022-10-17] VITALS (17 sets, daily range): BP systolic 90–128; BP diastolic 66–93; PULSE 82–127; RESP 9–26; TEMP 36.6; O2SAT 93–100
--- NOTE | ~2022-10-17 | XR_ITS ---
EXAMINATION: XR hand LT min 3V INDICATION: Left hand pain TECHNIQUE: Three views of the left hand are obtained. COMPARISON: None available FINDINGS: No fracture, dislocation, or subluxation. The bones, soft tissues, and joint spaces are nor mal. IMPRESSION: 1. No acute osseous abnormality. Reviewed, dictated and finalized at location F.
--- NOTE | ~2022-10-17 | XR_ITS ---
EXAMINATION: XR hand RT min 3V INDICATION: Right hand pain TECHNIQUE: Three views of the right hand are obtained. COMPARISON: None available FINDINGS: No fracture, dislocation, or subluxation. The bones, soft tissues, and joint spaces are nor mal. IMPRESSION: 1. No acute osseous abnormality. Reviewed, dictated and finalized at location F.
--- NOTE | 2022-10-17 17:59 | ED.ANIMALBIT ---
HPI - Animal Bite General Chief Complaint: Animal Bite <DAVID Sousa Last Filed: 10/17/22 23:45> Stated Complaint: allergic rx <DAVID Sousa Last Filed: 10/17/22 23:45> Time Seen by Provider: 10/17/22 17:41 <DAVID Sousa Last Filed: 10/17/22 23:45> History of Present Illness HPI narrative: Patient is a 37-year-old female here after her cat bit both of her hands earlier today. Patient states that she was playing with her cat and it bit both of her hands about 4 hours prior to arrival. Since the bite she has noticed pain, swelling, nausea and states that she feels generally unwell. Denies any fevers or chills, difficulty moving the hands, vomiting. She attempted Ekaterina without relief of her symptoms. <DAVID Sousa Last Filed: 10/17/22 23:45> Related Data Home Medications: Home Medications Medication Instructions Recorded Confirmed albuterol sulfate 90 mcg/actuation 1 inh inhalation PRN PRN Shortness 01/11/20 01/31/22 aerosol inhaler (Ventolin HFA) Of Breath <DAVID Sousa Last Filed: 10/17/22 23:45> Allergies/Adverse Reactions: Allergies Allergy/AdvReac Type Severity Reaction Status Date / Time cat dander Allergy Swelling Verified 10/17/22 17:39 of the Eye <DAVID Sousa Last Filed: 10/17/22 23:45> Review of Systems Review of Systems: Gen: Denies fevers or chills Eyes: Denies eye pain or visual change ENT: Denies congestion Respiratory: Denies shortness of breath or cough CV: Denies chest pain or palpitations GI: Reports nausea. Denies abdominal pain nausea, emesis or diarrhea : denies burning, urgency, frequency or hematuria Musculoskeletal: Reports pain to hands. Denies back pain or muscle pain Neuro: Denies numbness, tingling, weakness or focal weakness Skin: Denies rash Except as documented, all other systems reviewed and negative <Charisma Handy PA-C - Last Filed: 10/17/22 23:45> PMFSH Past Medical History Medical History: Medical History Abdominal pain Anxiety Asthma Diarrhea Endometriosis Smoker <Charisma Handy PA-C - Last Filed: 10/17/22 23:45> Surgical History Surgical History: Surgical History H/O laparoscopy History of tubal ligation <Charisma Handy PA-C - Last Filed: 10/17/22 23:45> Social History Social History: Social History Smoking packs per day: 0.5 Smoking cigarettes per day: 10.0 Years smoked: 17 Smoking pack-years: 8.50 Smoking status: Current every day smoker Tobacco type: cigarettes Alcohol intake: current Drinks per week: 2 Substance use: never Substance use type: does not use Living arrangements: with friend(s) Additional living arrangements comments: boyfriend and daughter Gender identity (if verbalized by the patient): Female Spiritual care concerns: No <Charisma Handy PA-C - Last Filed: 10/17/22 23:45> Exam Narrative: APPEARANCE: Well appearing, no pain in distress, well-nourished. Head: Normocephalic and atraumatic. EYES: PERRLA/EOMI, conjunctivae clear NOSE: No nasal drainage EARS: External ear normal in appearance THROAT: Oropharynx is clear. Mucous membranes are moist. NECK: Supple. No adenopathy, no masses. RESPIRATORY: Airway patent, respirations nonlabored. Clear to auscultation bilaterally, no rales, rhonchi, wheezing. CARDIOVASCULAR: Regular rate and rhythm without murmurs, rubs, or gallops. ABDOMINAL: Normoactive bowel sounds. Soft, nontender, nondistended. No rebound tenderness or guarding. MUSCULOSKELETAL: Extremities are warm and well-perfused. Moves all extremities well. No edema. NEURO: Normal speech. No focal neurologic deficits. SKIN: Patient has multiple small puncture wounds to both hands at the thenar em
[2022-10-17] MEDS: ONDANSETRON INJ 4 MG/2 ML VIAL IV PUSH (18:12)
[2022-10-17] MEDS: methylPREDNISolone SOD SUCC 125 MG VIAL IV PUSH (18:12)
[2022-10-17] MEDS: diphenhydrAMINE HCl INJ 50 MG/ML VIAL 25 MG IV PUSH (18:12)
[2022-10-17] MEDS: FAMOTIDINE 20 MG/2 ML VIAL 40 MG IV PUSH (18:13)
[2022-10-17] MEDS: HYDROcodone/acetaminophen (*CRX) 5-325 MG TABLET 1 TAB PO (19:13)
--- NOTE | 2022-10-17 19:18 | PC.NURSE ---
Patient report given to DYLAN Burks. All questions answered and care of patient transferred.
[2022-10-17] MEDS: SODIUM CHLORIDE 0.9% IV 1,000 ML 999 ML IV CONT (19:54)
[2022-10-17] MEDS: AMPICILLIN SULB 3 GM/NS 100 ML 3 GM/100 ML VIAL IVPB (19:55)
[2022-10-17] MEDS: TETANUS,DIPHTHERIA,AC PERTUSSIS ADULT (0.5 ML) BOOSTRIX IM (19:55)
[2022-10-17 20:18] LABS: Basophils Absolute Auto 0.1 K/mm3 (0.0-0.1); Basophils Percent Auto 0.4 % (0.2-1.2); Eosinophils Percent Auto 0.2 % (0-4.4); Hemoglobin 15.1 g/dL (12.0-15.0); Immature Granulocyte Absolute 0.04 K/mm3 (0.00-0.031); Immature Granulocyte Percent A 0.3 % (0-0.5); Lymphocytes Absolute Auto 0.66 K/mm3 (0.9-3.2); Lymphocytes Percent Auto 5.2 % (18.3-44.2); Mean Corpuscular Hemoglobin 33.9 pg (26-34); Mean Corpuscular Volume 94.4 fl (80-100); Mean Platelet Volume 9.8 fl (7.4-10.4); Monocytes Absolute Auto 0.4 K/mm3 (0.1-0.6); Monocytes Percent Auto 3.5 % (2.6-8.5); Neutrophils Absolute Auto 11.5 K/mm3 (1.3-6.7); Neutrophils Percent Auto 90.4 % (45.5-73.1); Platelet Count Result 150 k/mm3 (150-375); Red Blood Count 4.45 M/mm3 (4.2-5.4); Red Cell Distribution Width 12.8 % (11.5-14.5); White Blood Count 12.7 K/mm3 (4.5-10.0)
[2022-10-17 20:29] LABS: Alanine Aminotransferase 34 U/L (6-35); Albumin Level 4.7 g/dL (3.5-5.1); Alkaline Phosphatase 54 U/L (38-126); Anion Gap 10 mmol/L (8-16); Aspartate Amino Transferase 31 U/L (14-36); Bilirubin,Total 0.9 mg/dL (0.2-1.3); Blood Urea Nitrogen 11 mg/dL (7-17); Calcium 9.6 mg/dL (8.4-10.2); Carbon Dioxide 21 mmol/L (22-30); Chloride 103 mmol/L (98-107); Estimated CRCL calculation 117 ml/min; Estimated Glomerular Filt Rate > 60; Glucose 104 mg/dL (65-110); Lactic Acid Reflex 1.2 mmol/L (0.7-2.0); Potassium 3.7 mmol/L (3.4-5.0); Sodium 134 mmol/L (137-145)
[2022-10-17] MEDS: KETOROLAC 15 MG/ML VIAL (*BKC) IV PUSH (21:26)
[2022-10-18 00:29] VITALS: BMI 27.9
[2022-10-18 00:35] VITALS: BP 127/96; PULSE 75; RESP 18; TEMP 36.5; O2SAT 98
[2022-10-18 00:36] VITALS: BMI 27.9
--- NOTE | 2022-10-18 00:40 | ADMGEN ---
This patient, Natasha Lin, was admitted to 3 [facility] Room 300-01. Patient/family oriented to hospital policies and general routines including ID bracelet, bed and alarms, visiting hours, pain management, procedures, bathroom and other care routines, personal items, smoking policy, room service/diet, and visiting hours. Information on how to activate the Rapid Response Team has been discussed. Patient/Family are encouraged to report perceived risks to care and to ask questions if they do not understand what they are told or what they should do.
[2022-10-18] MEDS: AMPICILLIN SULB 3 GM/NS 100 ML 3 GM/100 ML VIAL IVPB ×5 (00:51→23:48)
[2022-10-18] MEDS: ACETAMINOPHEN 325 MG TABLET 650 MG PO ×2 (00:58→08:02)
[2022-10-18] MEDS: diphenhydrAMINE HCl CAP 25 MG CAPSULE PO ×3 (00:58→22:40)
[2022-10-18] MEDS: KETOROLAC 30 MG/ML VIAL (*BKC) IV PUSH ×2 (03:10→11:17)
[2022-10-18 05:25] VITALS: BP 99/64; PULSE 57; RESP 18; TEMP 36.2; O2SAT 98
[2022-10-18 09:10] VITALS: O2SAT 98
[2022-10-18] MEDS: predniSONE 20 MG TABLET 40 MG PO (11:47)
--- NOTE | 2022-10-18 11:48 | PM.SD2 ---
Same Day Admit/Disch: HPI History of Present Illness Chief complaint: cellulitis with lymphangitis Narrative: Natasha Lin is a 37 year old female with past medical history significant for abdomen and endometriosis presented to ED On 10/17/2022 with chief complaint of allergic reaction. patient stated that she had started her CT and a it proceeded to bite her both of her hands. The the CT head that her 2 times on the left-hand and 2 times on the right hand. Patient stated most immediately after the bite her hands, arms, face, tongue, ears all swelled and stated that she did have some difficulty breathing. Patient also had diffuse reddening of the skin, nausea and vomiting during this time. patient has never had a reaction like this to anything before. She stated that she waited for her fiance to get home where he saw her and had given her and Ekaterina which did not help any of her symptoms. her fiance then called his mother and his mother brought her into the ED where she was then treated. While in the ED it was noted that the patient had a actively bleeding puncture wounds bilaterally on her hands as well as diffuse erythema on the bilateral upper extremities associated with itching, no hives or rash noted. Patient's respiratory exam in the ER revealed a clear oropharynx and patent airway with nonlabored breathing. Patient was admitted due to lymphangitis streaking up the bite wounds on both hands although this was not seen at the time my evaluation. Patient received Unasyn x1 in the ED and that seemed to improve her left ulnar and lymphangitis. Patient's white count was 12.7 but lactic was negative. X-rays were negative for osseous and foreign body involvement. Patient's tetanus was updated patient was started on Augmentin. When I evaluated the patient she appeared to be very emotional and states that she really wanted to go home. During evaluation there was mild swelling of patient's hands but no erythema or lymphangitis noted on exam. No signs of infection or the beginnings of infection were noted at the site puncture wound. Patient does have pain in her hands but otherwise no complaints. She denies nausea, vomiting, diarrhea, headache, dizziness, shortness of breath, difficulty breathing, chest pain, body aches, chills and fever. I discussed the risks and benefits with the patient and she is agreeable and wanting to be discharged. On discharge the patient on steroids and Augmentin and advised to follow-up with her primary care in approximately 5 days to assess her wounds. I will also be discharging the patient with an EpiPen in case she were to be bit again. [facility] Past Medical History Medical History Abdominal pain Anxiety Asthma Diarrhea Endometriosis Smoker Surgical History Surgical History H/O laparoscopy History of tubal ligation Family History Family History (Updated 10/18/22 @ 12:05 by Pennie Guerrero PA-C) Grandparent Diabetes mellitus Hypertension Heart disease Mother Hypertension Lung cancer Sibling Depression Father Brain aneurysm Other Lung cancer Other Cerebrovascular accident Social History Social History (Updated 10/18/22 @ 12:07 by Pennie Guerrero PA-C) Social History: Patient lives in a house with her fianc? and daughter. Patient lives at home with 1 dog and 1 cat. She has a every day smoker with a 10 cigarettes a day for approximately 20 years, she is a social drinker and denies drug use. Smoking packs per day: 0.5 Smoking cigarettes per day: 10.0 Years smoked: 17 Smoking pack-years: 8.50 Smoking status: Current every day smoker Tobacco type: cigarettes Alcohol intake: current Drinks per week: 5 Substance use: never Substance use type: does not use Lack of Transportation: No Lack of Food: Never True Current Housing: I Have Housing Concerned About Future Housing: No Difficulty [place]
[2022-10-18 11:53] LABS: Hematocrit 38.3 % (37.0-47.0); Hemoglobin 13.3 g/dL (12.0-15.0); Mean Corpuscular HGB Conc 34.7 g/dl (32-36); Mean Corpuscular Hemoglobin 33.7 pg (26-34); Mean Platelet Volume 10.3 fl (7.4-10.4); Platelet Count Result 158 k/mm3 (150-375); Red Blood Count 3.95 M/mm3 (4.2-5.4); White Blood Count 13.7 K/mm3 (4.5-10.0)
[2022-10-18 12:06] LABS: Anion Gap 9 mmol/L (8-16); Blood Urea Nitrogen 11 mg/dL (7-17); Calcium 8.7 mg/dL (8.4-10.2); Carbon Dioxide 24 mmol/L (22-30); Chloride 102 mmol/L (98-107); Estimated CRCL calculation 112 ml/min; Estimated Glomerular Filt Rate > 60; Glucose 196 mg/dL (65-110); Potassium 3.8 mmol/L (3.4-5.0); Sodium 135 mmol/L (137-145)
--- NOTE | 2022-10-18 12:21 | PM.IMHP ---
H&P: HPI History of Present Illness Date/Time: 10/18/22 12:21 Chief Complaint: Cat bite, allergic reaction Narrative: Natasha Lin is a 37 year old female with past medical history significant for abdomen and endometriosis presented to ED On 10/17/2022 with chief complaint of allergic reaction. patient stated that she had started her CT and a it proceeded to bite her both of her hands. The the CT head that her 2 times on the left-hand and 2 times on the right hand. Patient stated most immediately after the bite her hands, arms, face, tongue, ears all swelled and stated that she did have some difficulty breathing. Patient also had diffuse reddening of the skin, nausea and vomiting during this time. patient has never had a reaction like this to anything before. She stated that she waited for her fiance to get home where he saw her and had given her and Ekaterina which did not help any of her symptoms. her fiance then called his mother and his mother brought her into the ED where she was then treated. While in the ED it was noted that the patient had a actively bleeding puncture wounds bilaterally on her hands as well as diffuse erythema on the bilateral upper extremities associated with itching, no hives or rash noted. Patient's respiratory exam in the ER revealed a clear oropharynx and patent airway with nonlabored breathing. Patient was admitted due to lymphangitis streaking up the bite wounds on both hands although this was not seen at the time my evaluation. Patient received Unasyn x1 in the ED and that seemed to improve her left ulnar and lymphangitis. Patient's white count was 12.7 but lactic was negative. X-rays were negative for osseous and foreign body involvement. Patient's tetanus was updated patient was started on Augmentin. When I evaluated the patient she appeared to be very emotional and states that she really wanted to go home. During evaluation there was mild swelling of patient's hands but no erythema or lymphangitis noted on exam. No signs of infection or the beginnings of infection were noted at the site puncture wound. Patient does have pain in her hands but otherwise no complaints. She denies nausea, vomiting, diarrhea, headache, dizziness, shortness of breath, difficulty breathing, chest pain, body aches, chills and fever. I discussed the risks and benefits with the patient and she is agreeable and wanting to be discharged. On discharge the patient on steroids and Augmentin and advised to follow-up with her primary care in approximately 5 days to assess her wounds. I will also be discharging the patient with an EpiPen in case she were to be bit again. Review of Systems Review of Systems: All systems reviewed & are unremarkable except as noted in HPI and below PMFSH Past Medical History Medical History Abdominal pain Anxiety Asthma Diarrhea Endometriosis Smoker Surgical History Surgical History H/O laparoscopy History of tubal ligation Family History Family History Grandparent Diabetes mellitus Hypertension Heart disease Mother Hypertension Lung cancer Sibling Depression Father Brain aneurysm Other Lung cancer Other Cerebrovascular accident Social History Social History Social History: Patient lives in a house with her fianc? and daughter. Patient lives at home with 1 dog and 1 cat. She has a every day smoker with a 10 cigarettes a day for approximately 20 years, she is a social drinker and denies drug use. Smoking packs per day: 0.5 Smoking cigarettes per day: 10.0 Years smoked: 17 Smoking pack-years: 8.50 Smoking status: Current every day smoker Tobacco type: cigarettes Alcohol intake: current Drinks per week: 5 Substance use: never Substance use type: does not use Lack of Transportat
[2022-10-18 14:00] VITALS: BP 128/66; PULSE 66; RESP 18; TEMP 36.2; O2SAT 97
[2022-10-18] MEDS: HYDROcodone/acetaminophen (*CRX) 7.5-325 MG TABLET 1 TAB PO ×3 (14:37→22:36)
--- NOTE | 2022-10-18 15:11 | WPDCN ---
Assessment and Plan Assessment and plan (1) Cellulitis of skin with lymphangitis: Code(s): L03.90 - Cellulitis, unspecified Status: Acute Assessment and Plan: I believe the patient has responded well to treatment for the allergy and the initial cellulitis and reported lymphangitis. She did have an increase in white count and blood glucose today. She is tender to active motion of the digits. (2) Allergic reaction: Code(s): T78.40XA - Allergy, unspecified, initial encounter Status: Acute Plan Due to the mechanism of injury which has a high rate of morbidity. I would recommend keeping her here tonight, continuing her IV antibiotics until morning. Check morning white count. I will try to see her in the morning and likely she could be discharged on an Augmentin. If there is an urgent need for her bed please let me know. She could be discharged, we would see her in the office on Thursday. HPI Data of Consult Date/Time: 10/18/22 15:11 Requesting Physician: Jasmin Meyers DO Primary Care Provider: FOLDER SEAMER PHYSICIAN Consult Narrative Reason for consult: Cat bite to both hands with cellulitis Narrative: Natasha Lin is a 37 year old female who was admitted last evening with cat bite punctures over the bilateral dorsal thumbs. She had erythema swelling and pain in both hands and reported lymphangitis. This was also associated with swelling redness in her mouth on her face and ears. The bites were sustained at the mouth of her cat who was startled. The patient came to the ER within hours of the event because of the facial and hand swelling. White count was 12, her serum glucose was normal initially but climbed 196 this morning. She has been afebrile. In the emergency room she was treated with Benadryl and Unasyn. It appeared she responded fairly rapidly to that intervention. X-rays of the hands were normal. Her facial swelling and hand erythema is resolved today. She has she has slight swelling of her hands and some tenderness particularly in the dorsal thumbs. She is reluctant to try to flex her thumbs. The puncture wounds are quite small and did not show surrounding erythema or induration. There is no evidence of subcutaneous phlegmon or abscess formation. She showed me a picture from her phone of 1 hand at the time of admission. That condition is completely resolved with the exception of the small puncture sites and tenderness with active range of motion. The puncture sites except for 1 do not lie over joints. PMFSH Past Medical History Medical History Abdominal pain Anxiety Asthma Diarrhea Endometriosis Smoker Surgical History Surgical History H/O laparoscopy History of tubal ligation Family History Family History Grandparent Diabetes mellitus Hypertension Heart disease Mother Hypertension Lung cancer Sibling Depression Father Brain aneurysm Other Lung cancer Other Cerebrovascular accident Social History Social History Social History: Patient lives in a house with her fianc? and daughter. Patient lives at home with 1 dog and 1 cat. She has a every day smoker with a 10 cigarettes a day for approximately 20 years, she is a social drinker and denies drug use. Smoking packs per day: 0.5 Smoking cigarettes per day: 10.0 Years smoked: 17 Smoking pack-years: 8.50 Smoking status: Current every day smoker Tobacco type: cigarettes Alcohol intake: current Drinks per week: 5 Substance use: never Substance use type: does not use Lack of Transportation: No Lack of Food: Never True Current Housing: I Have Housing Concerned About Future Housing: No Difficulty Paying Gas/Electric Bills: No Difficulty Paying for Meds: No Currently Unemployed: No Educat
[2022-10-18 21:24] VITALS: BP 105/61; PULSE 52; RESP 18; TEMP 36.4; O2SAT 98
[2022-10-19 05:11] VITALS: BP 100/54; PULSE 41; RESP 18; TEMP 36.6; O2SAT 99
[2022-10-19] MEDS: HYDROcodone/acetaminophen (*CRX) 7.5-325 MG TABLET 1 TAB PO ×2 (06:19→11:46)
[2022-10-19] MEDS: AMPICILLIN SULB 3 GM/NS 100 ML 3 GM/100 ML VIAL IVPB ×2 (06:20→12:10)
[2022-10-19 06:25] LABS: Basophils Percent Auto 0.4 % (0.2-1.2); Eosinophils Percent Auto 0.3 % (0-4.4); Hematocrit 33.9 % (37.0-47.0); Hemoglobin 11.4 g/dL (12.0-15.0); Immature Granulocyte Absolute 0.06 K/mm3 (0.00-0.031); Immature Granulocyte Percent A 0.8 % (0-0.5); Immature Platelet Fraction Pct 6.9 % (0.9-11.2); Lymphocytes Absolute Auto 1.68 K/mm3 (0.9-3.2); Lymphocytes Percent Auto 23.1 % (18.3-44.2); Mean Corpuscular HGB Conc 33.6 g/dl (32-36); Mean Corpuscular Hemoglobin 32.9 pg (26-34); Mean Platelet Volume 10.6 fl (7.4-10.4); Monocytes Absolute Auto 0.5 K/mm3 (0.1-0.6); Monocytes Percent Auto 7.2 % (2.6-8.5); Neutrophils Percent Auto 68.2 % (45.5-73.1); Platelet Count Result 112 k/mm3 (150-375); Red Blood Count 3.46 M/mm3 (4.2-5.4); Red Cell Distribution Width 13.1 % (11.5-14.5); White Blood Count 7.3 K/mm3 (4.5-10.0)
[2022-10-19 06:36] LABS: Alanine Aminotransferase 23 U/L (6-35); Albumin Level 3.7 g/dL (3.5-5.1); Alkaline Phosphatase 35 U/L (38-126); Anion Gap 3 mmol/L (8-16); Aspartate Amino Transferase 22 U/L (14-36); Bilirubin,Total 0.4 mg/dL (0.2-1.3); Blood Urea Nitrogen 13 mg/dL (7-17); Calcium 8.2 mg/dL (8.4-10.2); Carbon Dioxide 32 mmol/L (22-30); Chloride 101 mmol/L (98-107); Estimated CRCL calculation 112 ml/min; Estimated Glomerular Filt Rate > 60; Glucose 124 mg/dL (65-110); Potassium 3.7 mmol/L (3.4-5.0); Sodium 136 mmol/L (137-145)
[2022-10-19] MEDS: diphenhydrAMINE HCl CAP 25 MG CAPSULE PO (08:08)
--- NOTE | 2022-10-19 08:47 | WPDPN ---
Progress Note: A&P Assessment and Plan (1) Cellulitis of skin with lymphangitis: Code(s): L03.90 - Cellulitis, unspecified Status: Acute Assessment and Plan: Responded to Unasyn, Benadryl . Discharge home on oral antibiotics 7 days. No dressings. Normal activity as tolerated. F/U with Dr Valladares on Thursday or Thursday. (2) Allergic reaction: Code(s): T78.40XA - Allergy, unspecified, initial encounter Status: Acute Subjective Date/time seen: 10/19/22 08:47 Interval history: Has been elevating hands. Seems apprehensive when requested to move thumbs. Exam Narrative: No erythema or puffiness. 1 mm puncture sites are scabbed. Able to touch thumb to finger tips. Actively extends thumbs. Tolerates direct palpation, again with apprehension. WBC 7.3, glucose ~120. Objective Data Vital Signs Vital Signs: Vital Signs - 24 hr 10/18/22 09:10 10/18/22 14:00 10/18/22 21:24 Temperature 97.2 F L 97.6 F Pulse Rate 66 52 L Respiratory Rate 18 18 Blood Pressure 128/66 105/61 Pulse Oximetry 98 97 98 Oxygen Delivery Room Air 10/19/22 05:11 Temperature 97.9 F Pulse Rate 41 L Respiratory Rate 18 Blood Pressure 100/54 L Pulse Oximetry 99 Oxygen Delivery Intake/Output Intake/Output: Intake & Output 10/16/22 10/17/22 10/18/22 10/19/22 23:59 23:59 23:59 23:59 Intake Total 1100 2276 500 Balance 1100 2276 500 Meds/Results Medications: Active Medications Generic Name Dose Route Start Last Admin Trade Name Freq PRN Reason Stop Dose Admin Acetaminophen 650 mg 10/17/22 22:48 10/18/22 08:02 Acetaminophen 325 Mg Tablet PO 650 mg Q4H PRN Administration Mild Pain (1-3) or Fever Hydrocodone Bitart/Acetaminophen 1 tab 10/18/22 14:15 10/19/22 06:19 Hydrocodone/Acetaminophen (*Crx) 7.5-325 Mg Tablet PO 1 tab Q4H PRN Administration Pain Rated 7-10 Diphenhydramine HCl 25 mg 10/17/22 22:48 10/19/22 08:08 Diphenhydramine Hcl Cap 25 Mg Capsule PO 25 mg Q6H PRN Administration Itching Ampicillin Sodium/Sulbactam Sodium 3 gm in 100 mls @ 200 mls/hr 10/18/22 01:00 10/19/22 08:08 Unasyn 3 Gm/Ns 100 Ml IVPB Infused Q6HR DAVID Infusion Ketorolac Tromethamine 30 mg 10/18/22 02:42 10/18/22 11:17 Ketorolac 30 Mg/Ml Vial (*Bkc) IV PUSH 30 mg Q6H PRN Administration Pain Rated 4-6 Ondansetron HCl 4 mg 10/17/22 22:48 Ondansetron Inj 4 Mg/2 Ml Vial IV PUSH Q4H PRN Nausea Prednisone 40 mg 10/19/22 08:00 Prednisone 20 Mg Tablet PO DAILY@0800 [facility] Radiology Results: ITS Impressions Hand X-Ray 10/17/22 22:12 IMPRESSION: 1. No acute osseous abnormality. Labs Labs: Laboratory Results - last 24 hr 10/18/22 10/18/22 10/19/22 11:44 11:44 06:02 WBC 13.7 H 7.3 RBC 3.95 L 3.46 L Hgb 13.3 11.4 L Hct 38.3 33.9 L MCV 97.0 98.0 MCH 33.7 32.9 MCHC 34.7 33.6 RDW 13.0 13.1 Plt Count 158 112 L MPV 10.3 10.6 H Immature Gran % (Auto) 0.8 H Neut % (Auto) 68.2 Lymph % (Auto) 23.1 [place] % (Auto) 7.2 Eos % (Auto) 0.3 Baso % (Auto) 0.4 Lymph # (Auto) 1.68 [place] # (Auto) 0.5 Eos # (Auto) 0.0 Baso # (Auto) 0.0 Abs Immat Gran (auto) 0.06 H Absolute Neuts (auto) 5.0 Absolute Nucleated RBC 0.0 Nucleated RBC % 0.0 % Immature Plt Fraction 6.9 Sodium 135 L Potassium 3.8 Chloride 102 Carbon Dioxide 24 Anion Gap 9 BUN 11 Creatinine 0.60 L Estim Creat Clear Calc 112 Estimated GFR > 60 Glucose 196 H Calcium 8.7 Total Bilirubin AST ALT Alkaline Phosphatase Total Protein Albumin 10/19/22 06:02 WBC RBC Hgb Hct MCV MCH MCHC RDW Plt Count MPV Immature Gran % (Auto) Neut % (Auto) Lymph % (Auto) [place] % (Auto) Eos % (Auto) Baso % (Auto) Lymph # (Auto) [place] # (Auto) Eos # (Auto) Baso # (Auto) Abs Immat Gran (auto) Abs
--- NOTE | 2022-10-19 11:57 | PM.DS ---
DS: Admitting Diagnosis Discharge Date 10/19/22 Admitting Diagnosis cat bite. DS: Discharge Diagnosis Discharge Diagnosis (1) Cat bite of hand: Code(s): S61.459A - Open bite of unspecified hand, initial encounter; W55.01XA - Bitten by cat, initial encounter Status: Acute Assessment and Plan: Patient presented to the ED with 7 puncture wounds in total due to cat bite. There was evidence of possible beginnings of lymphadenitis on exam in the ED and the patient admitted in this setting. Patient started on Unasyn and bilateral ulnar streaking resolved Tetanus shot given Blood cultures pending X-ray of the hands with no osseous abnormality or foreign body present. Elevated white count at 12.7 in the ED and repeat labs at 13.7. Due to puncture wounds involving hands plastic surgery consulted 4/ WBC in normal range. Will follow blood cultures. Follow up with Plastics as an outpatient. (2) Allergic reaction: Code(s): T78.40XA - Allergy, unspecified, initial encounter Status: Acute Assessment and Plan: Patient presented to the ED with bilateral swelling and erythema to the arms. The patient states that she also had a erythema and swelling to her face, ears, tongue and eyes although this was not noted in the ED physical exam. This resolved with Benadryl, Pepcid and steroids in the ED Prednisone 40 mg daily for a total of 5 days will be prescribed. Benadryl p.r.n. DS: Summary Hospital Course Reason for hospitalization: Cat bite. Hospital Course: Natasha Lin is a 37 year old female with past medical history significant for abdomen and? endometriosis presented to ED? On 10/17/2022 with chief complaint of allergic reaction. patient stated that she had started her CT and a it? proceeded to bite her both of her hands.? The the CT head that her 2 times on the left-hand and 2 times on the right hand.? Patient stated most immediately after the bite her hands, arms, face, tongue, ears all swelled and stated that she did have some difficulty breathing.? Patient also had diffuse reddening of the skin, nausea and vomiting during this time. patient has never had a reaction like this to anything before.? She stated that she waited for her fiance to get home where he saw her and had given her and Ekaterina which did not help any of her symptoms. While in the ED it was noted that the patient had a actively bleeding puncture wounds bilaterally on her hands as well as diffuse erythema on the bilateral upper extremities associated with itching, no hives or rash noted.? Patient's respiratory exam in the ER revealed a clear oropharynx and patent airway with nonlabored breathing.? Patient was admitted due to lymphangitis streaking up the bite wounds on both hands although this was not seen at the time my evaluation. ? Patient received Unasyn x1 in the ED and that seemed to improve her left ulnar and lymphangitis.? Patient's white count was 12.7 but lactic was negative.? X-rays were negative for osseous and foreign body involvement. Patient's tetanus was updated patient was continued on Unasyn. During evaluation there was mild swelling of patient's hands but no erythema or lymphangitis noted on exam.? No signs of infection or? the beginnings of infection were noted at the site puncture wound. ? Patient does have pain in her hands but otherwise no complaints.? She denies nausea, vomiting, diarrhea, headache, dizziness, shortness of breath, difficulty breathing, chest pain, body aches, chills and fever. Plastic surgery was consulted and recommended 24 hour IV Unasyn and monitor of the patient. Patient did well over night. Recommended follow up with plastics on Thursday or Thursday. On discharge the patient on steroids and Augmentin and advised to follow-up with her primary care in approximately 5 days to assess her wounds.? I will also be discharging the patient with an EpiPen in case she were to be bit again. Time S
[2022-10-19] MEDS: predniSONE 20 MG TABLET 40 MG PO (12:09)
--- NOTE | 2022-10-19 14:02 | PC.NURSE ---
10/19/22 Patient Discharged home with information on follow up and medications, verbalized understanding. Patient is Alert and Oriented , voids spontaneously, IV taken out and agreeable to Discharge instructions. Kim Canchola RN
--- NOTE | 2022-10-23 10:06 | PC.NURSE ---
Blood cx are negative.
== END 2022-10-19 13:55 | disposition home or self-care (01) ==
LOC: ANHED 22:17 → ANH3MEDSUR 10-18 11:48
PROVIDERS: Internal Medicine Critical Care Medicine; Admitting Provider Internal Medicine; Emergency Provider Physician Assistant; Visit Provider Student in an Organized Health Care Education/Training Program
DX: S61.452A Open bite of left hand, initial encounter (principal); S61.451A Open bite of right hand, initial encounter; W55.01XA Bitten by cat, initial encounter; T78.40XA Allergy, unspecified, initial encounter; L03.90 Cellulitis, unspecified; Z23 Encounter for immunization; D72.829 Elevated white blood cell count, unspecified; F41.9 Anxiety disorder, unspecified; J45.909 Unspecified asthma, uncomplicated; N80.9 Endometriosis, unspecified; F17.210 Nicotine dependence, cigarettes, uncomplicated; F10.90 Alcohol use, unspecified, uncomplicated; Z79.51 Long term (current) use of inhaled steroids
CPT/HCPCS: 36415; 73130; 80048; 80053; 83605; 85025; 85027; 85055; 87040; 90471; 90715; 96361; 96365; 96366; 96375; 96376; 99285; A9270; G0378; G0379; J0295; J1200; J1885; J2405; J2930; J7030; J7512

== ENCOUNTER 2022-11-30 18:13 | Emergency (ER) | payer OTHER, SELFPAY ==
[2022-11-30 18:22] VITALS: BP 139/94; PULSE 89; RESP 18; TEMP 37.3; O2SAT 100
--- NOTE | 2022-11-30 19:08 | ED.DENTAL ---
HPI - Dental/Oral General Chief complaint: Dental/Oral Stated complaint: Dental Pain Time Seen by Provider: 11/30/22 19:08 Source: patient Mode of arrival: ambulatory History of Present Illness HPI Narrative: 37-year-old female presented for complaint of right lower jaw pain worsening over the past few days, and states today she noticed swelling and the pain progressed to severe causing her to cry. Endorses a broken tooth to the site of pain, and this has abscessed in the past. She has taken 400 mg of ibuprofen 2 times today. States she developed sinus congestion today as well. She denies associated nausea, vomiting, fevers or chills. She does not have a dentist. MD Complaint: tooth pain Related Data Home Medications Medication Instructions Recorded Confirmed albuterol sulfate 90 mcg/actuation 1 inh inhalation PRN PRN Shortness 01/11/20 11/30/22 aerosol inhaler (Ventolin HFA) Of Breath Allergies Allergy/AdvReac Type Severity Reaction Status Date / Time cat dander Allergy Swelling Verified 11/30/22 18:35 of the Eye Review of Systems Review of Systems: CONSTITUTIONAL: Denies body aches, fever, chills ENT: Denies sore throat, or otalgia. Reports dental pain and nasal congestion CARDIOVASCULAR: Denies chest pain, palpitations RESPIRATORY: Denies cough or dyspnea. SKIN: Denies rash, itching, or wounds. MUSCULOSKELETAL: Denies myalgia. NEUROLOGIC: Denies headache, numbness, tingling, or weakness. PMFSH Past Medical History Medical History Abdominal pain Anxiety Asthma Diarrhea Endometriosis Smoker Surgical History Surgical History H/O laparoscopy History of tubal ligation Family History Family History Grandparent Diabetes mellitus Hypertension Heart disease Mother Hypertension Lung cancer Sibling Depression Father Brain aneurysm Other Lung cancer Other Cerebrovascular accident Social History Social History Social History: Patient lives in a house with her fianc? and daughter. Patient lives at home with 1 dog and 1 cat. She has a every day smoker with a 10 cigarettes a day for approximately 20 years, she is a social drinker and denies drug use. Smoking packs per day: 0.5 Smoking cigarettes per day: 10.0 Years smoked: 17 Smoking pack-years: 8.50 Smoking status: Current every day smoker Tobacco type: cigarettes Alcohol intake: current Drinks per week: 5 Substance use: never Substance use type: does not use Lack of Transportation: No Lack of Food: Never True Current Housing: I Have Housing Concerned About Future Housing: No Difficulty Paying Gas/Electric Bills: No Difficulty Paying for Meds: No Currently Unemployed: No Education: High School Diploma/GED Difficulty w/ Childcare or Family Care: No Living arrangements: with friend(s) Additional living arrangements comments: boyfriend and daughter Gender identity (if verbalized by the patient): Female Spiritual care concerns: No Comments At time of signature, I have reviewed and agree with nursing past medical, surgical, social and family history unless otherwise noted. Please see nursing chart for further information. There is no relevant family history pertinent to the presenting complaint Exam Narrative: GENERAL: Appears in pain; crying; no acute distress. HEAD: Normocephalic, atraumatic. EYES: EOMI. No redness or drainage. Conjunctivae normal. ENT: Dental pain location of #29, broken tooth with fragments, mild gum swelling and redness; tender. Multiple caries. Mucous membranes pink and moist. TMs normal bilaterally. Throat normal. Uvula midline. NECK: Normal AROM. No lymphadenopathy. CHEST: Clear to auscultation. HEART: Regular rate and rhythm. No murmur appreciated. SKIN: Warm, dry, no ra
== END 2022-11-30 19:18 | disposition home or self-care (01) ==
PROVIDERS: Emergency Provider Nurse Practitioner Family; PCP Family Medicine
DX: K04.7 Periapical abscess without sinus (principal); F17.210 Nicotine dependence, cigarettes, uncomplicated; J45.909 Unspecified asthma, uncomplicated; N80.9 Endometriosis, unspecified
CPT/HCPCS: 99213; G0463

== ENCOUNTER 2023-07-30 12:22 | Outpatient (CLI) | payer OTHER, SELFPAY ==
--- NOTE | ~2023-07-30 | XR_ITS ---
XR chest 2V DATE: 07/30/2023 12:38 INDICATION: Asthma TECHNIQUE: PA and lateral views COMPARISON: August 18, 2017 portable AP chest November 12, 2015 2 view chest FINDINGS: Normal heart size. No hilar or mediastinal enlargement. No pulmonary infiltrate or consolid ation, pleural effusion or pulmonary vascular congestion or pneumothorax. Mild thoracic scoliosis. IMPRESSION: No active cardiopulmonary disease Reviewed, dictated and finalized at location L. MACHINE OPERATOR
== END 2023-07-30 12:23 | disposition home or self-care (01) ==
LOC: ANHIMG 12:23
PROVIDERS: PCP Physician Assistant; Visit Provider Physician Assistant
DX: J45.909 Unspecified asthma, uncomplicated (principal)
CPT/HCPCS: 71046

== ENCOUNTER 2025-01-18 08:53 | Outpatient (CLI) | payer OTHER, SELFPAY ==
--- NOTE | ~2025-01-18 | CT_ITS ---
CT of the Abdomen and Pelvis: Indication: Diarrhea Technique: 2.5 mm axial scans were obtained through the abdomen and pelvis following intravenous adm inistration of 100 cc of Omnipaque 350. Dose reduction technique was used on this scan by utilizing a utomated exposure control and iterative reconstruction technique. The dose-length product (DLP) was 4 05.43 mGy-cm. Findings: Scans through the lung bases are unremarkable. The liver, spleen, pancreas, gallbladder, adrenals and kidneys are within normal limits. No evidence of aortic aneurysm. No lymphadenopathy. No bowel obstruction or bowel wall thickening. There is no evidence to suggest acute appendicitis. Images through the pelvis were performed. Urinary bladder unremarkable. No pelvic mass seen. No ascit es. Impression: No significant abnormalities seen. Reviewed, dictated and finalized at [facility]. Impression: No significant abnormalities seen.
--- OUTSIDE RECORDS SUMMARY | 2025-01-18 09:03 | XMS_ITS | Referral Summary ---
Author Organization [address] Address [address] [place] [id number] Care Team Providers Care Care Consultant Name Role Phone Carlton Tenorio MD Primary Care Provider [phone] Encounters Date Type Department Care Team Description 12/30/2024 4:30 PM CDT E-Visit [address] [phone] Joie Eubanks NP Your Medications 12/30/2024 Patient Self-Triage [facility]/ Physicians [address] [place] [phone] Mychart, Generic Provider 11/03/2024 12:15 PM CDT Telemedicine [address] [phone] Julienne Villagomez, KAMRON Upper respiratory tract infection, unspecified type (Primary Dx); Otalgia of both ears 11/03/2024 Patient Self-Triage [facility]/ Physicians [address] [place] [phone] Mychart, Generic Provider 11/03/2024 Patient Self-Triage [facility]/ Physicians [address] [place] [phone] Mychart, Generic Provider from Last 3 Months Allergies No known active allergies Medications budesonide-form oteroL (SYMBICORT) 80-4.5 mcg/actuation inhaler Inhale 2 puffs 2 (two) times a day Rinse mouth with water after use. Do not swallow. 1 each 5 2 Active albuterol HFA (PROVENTIL HFA,VENTOLIN HFA,PROAIR HFA) 90 mcg/actuation inhaler Inhale 2 puffs every 6 (six) hours as needed for wheezing or shortness of breath for wheezing 18 g 4 Active amoxicillin-cla vulanate (AUGMENTIN) 875-125 mg per tablet Take 1 tablet by mouth 2 (two) times a day for 10 days 20 tablet 5 01/10/20 25 predniSONE (DELTASONE) 10 mg tablet Take 4 tabs PO x 3 days, then 3 tabs po x 3 days, then 2 tabs po x 3 days then 1 tab po x 3 days then stop 30 tablet 5 01/12/20 25 Active Problems Problem Noted Date Diagnosed Date Moderate persistent asthma with acute exacerbati on 04/14/2024 Strep throat 10/20/2023 Assessment & Plan (10/20/2023 10:56 AM CDT): Keflex erx'ed to pharmacy. Instructed on use and possible side effects of the medicine. Use OTC meds as directed to treat sx. Change toothbrush after 5 days of treatment w/ abx. If any problems or questions or no improvement of symptoms in the next few days, please f/u w/ PCP. If symptoms worsen, go to the ED. Pt verbalized understanding. Irritable bowel syndrome with diarrhea 2 Mild intermittent asthma without complication Smoker 11/28/2021 Weight gain 10/03/2021 Immunizations Immunization Administration Dates Next Due DTaP 04/02/2014 Influenza, Unspecified 04/19/2022,2021(Deferred: Patient Refused),07/20/2020(Deferred: Patient Refused) Tdap 07/20/2013 Social History Tobacco Use Types Packs/Day Years Used Date Smoking Tobacco: Every Day Cigarettes Smokeless Tobacco: Never PHQ-2 Answer Date Recorded PHQ-2 Total Score (If total score is 3 or more points, staff should administer the PHQ-9) 0 11/28/2021 Comments Unknown Sex and Gender Information Value Date Recorded Sex Assigned at Not on file 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 Gender Identity Not on file Sexual Orientation Not on file Last Filed Vital Signs Vital Sign Reading Time Taken Comments Blood Pressure 130/80 11/28/2021 4:02 PM CDT Pulse 82 11/28/2021 4:02 PM CDT Temperature 36.9 C (98.5 F) 11/28/2021 4:02 PM CDT Respiratory Rate - - Oxygen Saturation 98% 11/28/2021 4:02 PM CDT Inhaled Oxygen Concentration - - Weight 73.7 kg (162 lb 6.4 oz) 11/28/2021 4:02 P M CDT Height 165.1 cm (5' 5) 11/28/2021 4:02 PM CDT Body Mass Index 27.02 11/28/2021 4:02 PM CDT Plan of Treatment Not on file Insurance Care Teams Care Consultant Relationship Specialty Start Date End Date Carlton Tenorio MD PCP - General Family Medicine 10/03/21
--- OUTSIDE RECORDS SUMMARY | 2025-01-18 09:03 | XMS_ITS | Clinical Summary ---
Author Organization [facility] [place] [address] Address [address] [place] [id number] Care Team Providers Care Order Management Specialist Name Role Phone Carlton Tenorio MD Primary Care Provider [phone] Allergies No known active allergies Medications budesonide-form [...] Assessment & Plan (10/20/2023 10:56 AM CDT): Kegraciela erx'ed to pharmacy. Instructed on use and [...] verbalized understanding. Irritable bowel syndrome with diarrhea Mild intermittent asthma without complication Smoker 11/28/2021 Weight gain 10/03/2021 Encounters Date Type Department Care Team Description 12/30/2024 4:30 PM CDT E-Visit [address] [phone] Joie Eubanks, KAMRON Your Medications 12/30/2024 Patient Self-Triage [facility]/ Physicians [address] [place] [phone] Mychart, Generic Provider 11/03/2024 12:15 PM CDT Telemedicine [address] [phone] Julienne Villagomez NP Upper respiratory tract infection, unspecified type (Primary Dx); Otalgia of both ears 11/03/2024 Patient Self-Triage 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 Gender Identity Not on file Sexual Orientation Not on file Obstetrics History Last Filed Vital Signs Vital Sign Reading [...] 11/28/2021 4:02 PM CDT Plan of Treatment Health Maintenance Due Date Last Done Comments Cervical Cancer Screening 1986 Hepatitis C Screening 1986 Varicella Vaccines (1 of 2 - 13+ 2-dose series) 1999 Hepatitis B Screening 2004 Regular Well Visit/Exam 18-64 2004 Depression Screening 11/28/2022 11/28/2021, 10/03/2021 DTaP/Tdap/Td Vaccine (3 - Td or Tdap) 04/02/2024 04/02/2014, 07/20/2013 Influenza Vaccine (Season Ended) 2025 04/19/2022 Pneumococcal vaccine <65 (1 of 2 - PCV) 12/30/2033 Postponed from 06/16 (Provider's clinical decision) HPV Vaccines Aged Out No longer eligi ble based on patient's age to complete this topic Insurance [facility] Member Subscriber Plan / Payer (Ef fective 2020-Present) Name:Natasha Lin Relation to Subscriber:Self Name:Natasha Lin Payer ID:[id number] (NAIC) Type:MEDICAID RISK OTHER Address: [place] [id number] [facility] Care Teams Order Management Specialist Relationship Specialty Start Date End Date Carlton Tenorio MD PCP - General Family Medicine 10/03/21
--- OUTSIDE RECORDS SUMMARY | 2025-01-18 09:03 | XMS_ITS | Data Portability ---
Author Organization [facility], Main Office Address [address] [place] [address] Assessment No assessment recorded. Plan of Treatment Reminders Order Date Submit Date Provider Last Modified By Organization Details Last Modified Time Details Appointments None recorded. Lab TSH, serum, reflex free T4 2022 023 [email or web address] 4 [facility] (Lab), [address] [place], [address], 3 12:19:40 CBC 2022 023 [email or web address] 4 [facility] (Lab), [address] [place], [address], 3 12:19:40 CMP, serum or plasma 2022 023 [email or web address] 4 [facility] (Lab), [address] [place], [address], 3 12:19:40 vitamin D, 25-hydroxy, total, serum 2022 023 [email or web address] 4 [facility] (Lab), [address] [place], [address], 3 12:19:40 vitamin B12 + folate, serum or blood 2022 023 [email or web address] 4 [facility] (Lab), [address] [place], [address], 12:19:40 Referral None recorded. Procedures None recorded. Surgeries None recorded. Imaging XR, chest 2022 023 [email or web address] [address] [facility], [address], [place], [address], 3 09:04:14 Medication Orders omeprazole 40 mg capsule,del ayed release 2022 023 [facility], [address] [place], [address], 09:56:00 dicyclomine 20 mg tablet 2022 023 [facility], [address] [place], [address], 3 09:56:04 prednisone 20 mg tablet 2022 023 [facility], [address] [place], [address], 3 09:56:00 doxycycline hyclate 100 mg capsule 2022 023 [facility], [address] [place], [address], 3 09:56:01 Flonase Allergy Relief 50 mcg/actuati on nasal spray,suspe nsion 2022 023 [facility], [address] [place] [address], [address], 3 09:55:58 Patient TargetsNo targets recorded. Patient InstructionsNo instructions recorded. Reason for Referral None Reported. Results Created Date Observation Date Name Description Value Unit Range Abnormal Flag Note LastModifiedBy Organization Detail LastModifiedTime 07/31/19 24 07/30/2023 XR, chest No observ ation record ed. [email or web address] [facility] [address] [facility] [address], [place], [address], 10/07/2023 12:24:08 Result Notes None recorded. Problems Name Problem SNOMED Code Status Onset Date Resolution Date Notes Provider Name and Address Organization Details Recorded Time Asthma 100230596 Active 2022 Anisha avelar CMA null, [facility] 3 09:17:15 Chronic diarrhea 517567138 Active 2022 CITLALLI Hernandez [address], [address], [place], [address], [facility] [employer] [facility] 3 09:35:50 Upper respiratory infection 60251013 Active 2022 CITLALLI Hernandez [address], [address], [place], [address], [facility] [employer] [facility] 3 09:37:35 Vitamin D deficiency 31910667 Active 2022 CITLALLI Hernandez [address], [address], [place], [address], [facility] [employer] [facility] 3 09:45:09 Cobalamin deficiency 500791377 Active 2022 CITLALLI Hernandez [address], [address], [place], [address], [facility] [employer] [facility] 3 09:45:17 Chronic abdominal pain 348706815 Active 2022 CITLALLI Hernandez [address], [address], [place], [address], [facility] [employer] [facility] 3 09:47:47 Endometriosis of pelvis 71908484 Active 2022 CITLALLI Hernandez [address], [address], [place], [address], [facility] [employer] [facility] 3 09:50:22 Endometriosis of uterus 30409378 Active 2022 CITLALLI Hernandez [address], [address], [place], [address], [facility] [employer] [facility] 3 09:50:35 Loss of hair 521435776 Active 2022 CITLALLI Hernandez [address], [address], [place], [address], [employer] 3 09:57:58 Conjunctivitis 7876962 Active 2022 NICOLE White [address], [address], [place], [address], [facility] 3 17:34:12 Problem Notes None recorded. 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 Procedure Notes None recorded. Medical Equipment None Reported. Allergies No known drug allergies Medications Name Sig Start Date Stop Date Status Note LastModified by Organization Details LastModified Time prednisone 10 mg tablet TAKE 4 TABLETS BY MOUTH ONCE DAILY FOR 3 DAYS THEN 3 ONCE DAILY FOR 3 DAYS THEN 2 ONCE DAILY FOR 3 DAYS THEN 1 ONCE DAILY FOR 3 DAYS active Not Available Not Available N ot Available doxycycline hyclate 100 mg capsule TAKE 1 CAPSULE BY MOUTH TWICE DAILY FOR 7 DAYS active Not Available Not Available No t Available ibuprofen 800 mg tablet TAKE 1 TABLET BY MOUTH EVERY 8 HOURS WITH FOOD NEEDED active Not Available Not Available No t Available Lidocaine Viscous 2 % mucosal solution APPLY WITH COTTON SWAB TO SITE OF PAIN THREE TIMES DAILY active Not Available Not Available Not Available prednisone 20 mg tablet TAKE 3 TABLETS BY MOUTH ONCE DAILY FOR 3 DAYS AND THEN 2 ONCE DAILY FOR 3 DAYS AND THEN 1 ONCE DAILY FOR 3 DAYS AND THEN 1/2 (ONE-HALF) ONCE DAILY FOR 3 DAYS THEN STOP active Not Available Not Available No t Available omeprazole 40 mg capsule,laurence yed release TAKE 1 CAPSULE BY MOUTH ONCE DAILY active Not Available Not Available No t Available amoxicillin 500 mg tablet TAKE ONE TABLET BY MOUTH EVERY 8 HOURS UNTIL FINISHED active Not Available Not Available No t Available dicyclomine 20 mg tablet TAKE 1 TABLET BY MOUTH THREE TIMES DAILY NEEDED active Not Available Not Available No t Available benzonatate 100 mg capsule Take 1 capsule 3 times a day by oral route. active Not Available Not Available No t Available cephalexin 500 mg capsule TAKE 1 CAPSULE BY MOUTH TWICE DAILY FOR 7 DAYS active Not Available Not Available No t Available polymyxin B sulfate 10,000 unit-trimeth oprim 1 mg/mL eye drops INSTILL 1 DROP INTO AFFECTED EYE(S) EVERY 6 HOURS active Not Available Not Available No t Available epinephrine 0.3 mg/0.3 mL injection, auto-injecto r INJECT 0.3 MG IN THE MUSCLE ONCE active Not Available Not Available Not Available albuterol sulfate HFA 90 mcg/actuatio n aerosol inhaler INHALE 2 PUFFS BY MOUTH EVERY 6 HOURS NEEDED FOR WHEEZING FOR SHORTNESS OF BREATH active Not Available Not Available No t Available fluticasone propionate 50 mcg/actuatio n nasal spray,suspen toro USE 1 SPRAY(S) IN EACH NOSTRIL ONCE DAILY active Not Available Not Available N ot Available amoxicillin 875 mg-potassium clavulanate 125 mg tablet TAKE 1 TABLET BY MOUTH TWICE DAILY FOR 10 DAYS active Not Available Not Available No t Available albuterol sulf 90 mcg/actuatio n breath activated powder inhaler,sens or Inhale 2 puffs every 6 hours by inhalation route. 2023 active Not Available Not Available Not Avai lable Vitals Date Recorded Body weight Body mass index (BMI) Body height Body temperature Heart rate Oxygen saturation Oxygen saturation in Arterial blood by Pulse oximetry Systolic blood pressure Diastolic blood pressure Provider Name and Address Organization Details Last Updated DateTime 3 66696.4 5 g 25.1 kg/m2 165.1 cm 97.4 [degF] 82 /min 98 % 98 % 122 mm[Hg] 80 mm[Hg] Anisha avelar CMA [facility] 09:14:25 Social History Question Answer Notes LastModified by Organizat ion Details LastModified Time Tobacco Smoking Status Current Every Day Smoker Anisha August CMA [email or web address] 06/23/2023 09:19:18 What Is Your Level Of Caffeine Consumption? Occasional [email or web address] Information not available 06/23/2023 What Type Of Diet Are You Following? REGULAR [email or web address] Information not available 06/23/2023 At What Age Did You Start Smoking Tobacco? 18 [email or web address] Information not available 06/23/2023 How Much Tobacco Do You Smoke? 0.5 PPD [email or web address] Information not available 06/23/2023 Do You Have Any Dietary Restrictions? No [email or web address] Information not available 06/23/2023 Sex: Female Functional Status Question Answer Note LastModified by Organizat ion Details LastModified Time What is your level of alcohol consumption? Occasional [email or web address] Information not available 06/23/2023 What is your exercise level? Occasional [email or web address] Information not available 06/23/2023 Mental Status None recorded. Family History Relationship Description Onset Age of this Age Resolved Age Notes LastModified by Organization Details LastModified Time Mother Hypertensive disorder [email or web address] Not available 09:18:01 Mother Type 2 diabetes mellitus [email or web address] Not available 09:18:18 Maternal Grandmother Hypertensive disorder [email or web address] Not available 09:18:01 Medical History No medical history recorded. Gynecological HistoryNo gynecological history recorded. Obstetrics History GPAL:G 0 P 0 0 0 0 Past Encounters Encounter ID Performer Location Encounter Start Date Encounter Closed Date Diagnosis/Indication Diagnosis SNOMED-CT Code Diagnosis ICD10 Code Diagnosis Note [id number] Sarahy Forrest MD [facility] [address] [place] [address] 06/23/2023 09:05:07 06/23/2023 11:09:15 Asthma 946864329 J45.909 She previously was on symbicort but has only been using albuterol in recent years.Has not seen pulmonolog ist in years.Othe r than current acute illness, symptoms have been stable.She has had symptoms x 4 weeks now and lots of wheezing on exam.Plan to do abx and steroids, if still no improvemen t, XR order given. Chronic diarrhea 4445997 09 K52.9 Has been ongoing problem for last 15 years. States it has form sometimes but mainly watery. Has noticed blood one time, no mucous or undigested food.Colon oscopy 2021 at [facility].Will get labs today. Upper resp iratory infection 84768630 J06.9 Will do course of doxycyclin e, advised to start flonase.Co ntinue otc treatments .She has not been covid tested, so I have advised her to do test to r/o. Vitamin D deficiency 347 72086 E55.9 Not currently on supplement . No previous diagnosis. Cobalamin deficiency 190 431404 E53.8 Not currently on supplement . No previous diagnosis. Chronic ab dominal pain 278743069 R10.9 Has been for last 5 years, mainly left sided. Pain started after a complicate d delivery, but she is unsure if expense clerk or GI related (also hx of endometrio sis). They thought possibly more GI, so she had colonoscop ywhich was normal.Roe l do trial of PPI and dicyclomin e.Will consider imaging if still no improvemen t. Endometrio sis of uterus 08814690 N80.00 S/p hysterecto my. Pt. believes she still has one ovary.If no positive findings on GI work-up, may need to consider expense clerk referral to evaluate further. Loss of hair 875935289 L 65.9 New symptoms. Has also noticed brittle nails.Will check labs to r/o physiologi c causes. Health Concerns Section Related Observation LastModified by Organization Detai ls LastModified Time None Recorded Concern Status LastModified by Organization Details LastModified Time None Recorded Advance Directives Directive None Recorded Payers Insurance Date Sequence Insurance Name Policy Number Policy Lopez Covered Member ID Lopez Member ID Guarantor Name 04/01/2024 1 [facility] (MEDICAID HMO) [id number] Natasha Lin [id number] Natasha Lin Notes Date Note Type Note Provider Name and Address Organization Details Recorded Time 06/23/2023 text/html Pt. here to establish care.-Since 05/25 she has had a cough, sinus pressure in her ears, chest congestion. She was given a steroid, abx and cough capsules. She has not had any fevers. She did a virtual visit so she was not tested for covid/flu/strep. She has asthma, states her breathing has been slightly worse at night time. Has noticed some wheezing.-Pt. states she has also struggled with chronic diarrhea for the last 15 years. She has also had abdominal pain, mainly left sided for last 5 years. Not sure if it was GI or expense clerk related. She had colonoscopy done to evaluate pain and states it was all normal.-She is also concerned about hair thinning/graying and states her nails have become more brittle. She thinks she may have a problem with her vitamins. CITLALLI Hernandez [address] [place] [address], [facility] [address], [place], [address], [place] [facility] 06/23/2023 10:04:25 OBGyn Episode No OBEpisode recorded.
== END 2025-01-18 08:54 | disposition home or self-care (01) ==
PROVIDERS: PCP Nurse Practitioner Family; Visit Provider Nurse Practitioner Family
DX: R10.9 Unspecified abdominal pain (principal); R19.7 Diarrhea, unspecified
CPT/HCPCS: 74177; Q9967

== ENCOUNTER 2025-01-19 07:55 | Outpatient (CLI) | payer OTHER, SELFPAY ==
--- NOTE | ~2025-01-19 | NM_ITS ---
EXAMINATION: NM hepatobiliary w pharm DATE: 01/19/2025 10:10 INDICATION: Right upper quadrant abdominal pain COMPARISON: None. TECHNIQUE: 4.9 mCi Tc-99m mebrofenin (Choletec) was administered intravenously. Scintigraphic images of the abdomen were obtained for one hour. 1.5 mcg sincalide (Kinevac) was administered by slow intr avenous infusion, and imaging was continued for 30 minutes. Gallbladder ejection fraction was calcula juana by the technologist. FINDINGS: There is normal clearance of radiotracer from the blood pool. There is homogeneous tracer uptake by t he liver. Activity progresses to the gallbladder and bowel. The gallbladder ejection fraction (GBEF) is 73% (normal 10-90%, but most patient with gallbladder dysfunction have GBEF < 35% which does over lap with the normal range). IMPRESSION: 1. Normal hepatobiliary scan Reviewed, dictated and finalized at location B.
--- OUTSIDE RECORDS SUMMARY | 2025-01-19 08:00 | XMS_ITS | Clinical Summary ---
Author Organization [facility] [address] Address [address] [place] [address] Care Team Providers Care Early Childhood Coordinator Name Role Phone Carlton Tenorio MD Primary Care Provider [phone] Allergies No known active allergies Medications budesonide-form [...] Description 12/30/2024 4:30 PM CDT E-Visit [address] [phone] Joie Eubanks, [facility] Your Medications 12/30/2024 Patient Self-Triage [facility]/ Physicians [address] [place] [address] Mychart, Generic Provider 11/03/2024 12:15 PM CDT Telemedicine [address] [phone] Julienne Villagomez NP Upper respiratory tract infection, unspecified type (Primary Dx); Otalgia of both ears 11/03/2024 Patient Self-Triage [facility] [address] [place] [address] Mychart, Generic Provider 11/03/2024 Patient Self-Triage [facility]/ Physicians [address] [place] [address] Mychart, Generic Provider from Last 3 Months [...] on file 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
--- OUTSIDE RECORDS SUMMARY | 2025-01-19 08:00 | XMS_ITS | Referral Summary ---
Author Organization [address] Address [address] [place] [address] Care Team Providers Care Associate Professor Of Medicine Name Role Phone Carlton Tenorio MD Primary Care Provider [phone] Encounters Date Type Department Care Team Description 12/30/2024 4:30 PM CDT E-Visit [address] [address] Joie Eubanks NP Your Medications 12/30/2024 Patient Self-Triage [facility]/ Physicians [address] [place] [address] Mychart, Generic Provider 11/03/2024 12:15 PM CDT Telemedicine [address] [address] Julienne Villagomez, KAMRON Upper respiratory tract infection, unspecified type (Primary Dx); Otalgia of both ears 11/03/2024 Patient Self-Triage [facility]/ Physicians [address] [place] [address] Mychart, Generic Provider 11/03/2024 Patient Self-Triage [facility] [address] [place] [address] Mychart, Generic Provider from Last 3 Months [...] on file 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
== END 2025-01-19 07:56 | disposition home or self-care (01) ==
PROVIDERS: PCP Nurse Practitioner Family; Visit Provider Nurse Practitioner Family
DX: R10.11 Right upper quadrant pain (principal); R19.7 Diarrhea, unspecified
CPT/HCPCS: 78227; A9537; J2805

== ENCOUNTER 2025-02-09 13:29 | Outpatient (CLI) | payer OTHER, SELFPAY ==
--- OUTSIDE RECORDS SUMMARY | 2025-02-09 13:38 | XMS_ITS | Clinical Summary ---
Author Organization [facility] [address] Address [address] [place] [address] Care Team Providers Care Digital Imaging Technician Name Role Phone Carlton Tenorio MD Primary Care Provider [phone] Allergies No known active allergies Medications budesonide-form [...] breath for wheezing 18 g 4 Active predniSONE (DELTASONE) 10 mg tablet Take 4 [...] Team Description 12/30/2024 4:30 PM CDT E-Visit [facility] Virtual Care [address] [place] [address] Joie Eubanks NP Your Medications 12/30/2024 Patient Self-Triage [facility] [address] [place] [address] Mychart, Generic Provider from Last 3 Months [...] on file 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
--- OUTSIDE RECORDS SUMMARY | 2025-02-09 13:38 | XMS_ITS | Data Portability ---
Author Organization [facility], Main Office Address [address] [place] [address] Assessment No assessment recorded. Plan of Treatment Reminders Order Date Submit Date Provider Last Modified By Organization Details Last Modified Time Details Appointments None recorded. Lab TSH, serum, reflex free T4 2022 023 [email or web address] 4 [facility] (Lab), [address] [place], [address], 3 12:19:40 CBC 2022 023 [email or web address] 4 [facility] (Lab), [address] [place], [address], 3 12:19:40 CMP, serum or plasma 2022 023 [email or web address] 4 [facility] (Lab), [address] [place], [address], 3 12:19:40 vitamin D, 25-hydroxy, total, serum 2022 023 [email or web address] 4 [facility] (Lab), [address] [place], [address], 3 12:19:40 vitamin B12 + folate, serum or blood 2022 023 [email or web address] 4 [facility] ([facility]), [address] [place], [address], 12:19:40 Referral None recorded. Procedures None recorded. Surgeries None recorded. Imaging XR, chest 2022 023 [email or web address] [address] [facility], [address], [place], [address], 3 09:04:14 Medication Orders omeprazole 40 mg capsule,del ayed release 2022 023 [facility], [address] [place], [address], 09:56:00 dicyclomine 20 mg tablet 2022 023 [facility], [address] [place], [address], 3 09:56:04 prednisone 20 mg tablet 2022 023 [facility], [address] [place], [address], 3 09:56:00 doxycycline hyclate 100 mg capsule 2022 023 [facility], [address] [place], [address], 3 09:56:01 Flonase Allergy Relief 50 mcg/actuati on nasal spray,suspe nsion 2022 023 [facility], [address] [place] [address], [address], 3 09:55:58 Patient TargetsNo targets recorded. Patient InstructionsNo instructions recorded. Reason for Referral None Reported. Results Created Date Observation Date Name Description Value Unit Range Abnormal Flag Note LastModifiedBy Organization Detail LastModifiedTime 07/31/19 24 07/30/2023 XR, chest No observ ation record ed. [email or web address] [facility] [address] [facility] [address], [place], [address], 10/07/2023 12:24:08 Result Notes None recorded. Problems Name Problem SNOMED Code Status Onset Date Resolution Date Notes Provider Name and Address Organization Details Recorded Time Asthma 599295042 Active 2022 Anisha avelar CMA null, [facility] 3 09:17:15 Chronic diarrhea 232224217 Active 2022 CITLALLI Hernandez [address], [address], [place], [address], [facility] 3 09:35:50 Upper respiratory infection 07550494 Active 2022 CITLALLI Hernandez [address], [address], [place], [address], [facility] [employer] [facility] 3 09:37:35 Vitamin D deficiency 04023731 Active 2022 CITLALLI Hernandez [address], [address], [place], [address], [facility] 3 09:45:09 Cobalamin deficiency 605533280 Active 2022 CITLALLI Hernandez [address], [address], [place], [address], [facility] [employer] [facility] 3 09:45:17 Chronic abdominal pain 578802702 Active 2022 CITLALLI Hernandez [address], [address], [place], [address], [facility] [employer] [facility] 3 09:47:47 Endometriosis of pelvis 01465498 Active 2022 CITLALLI Hernandez [address], [address], [place], [address], [facility] [employer] [facility] 3 09:50:22 Endometriosis of uterus 97016467 Active 2022 CITLALLI Hernandez [address], [address], [place], [address], [facility] [employer] [facility] 3 09:50:35 Loss of hair 996497591 Active 2022 CITLALLI Hernandez [address], [address], [place], [address], [email or web address] 3 09:57:58 Conjunctivitis 4042967 Active 2022 NICOLE White [address], [address], [place], [address], [email or web address] 3 17:34:12 Problem Notes None recorded. 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 Procedure [...] in Arterial blood by Pulse oximetry Systolic And Diastolic Provider Name and Address Organization Details Last Updated DateTime 3 00317.4 5 g 25.1 kg/m2 165.1 cm 97.4 [degF] 82 /min 98 % 98 % 122/80 mm[Hg] Anisha avelar CMA [facility] [employer] 09:14:25 Social History Question Answer Notes LastModified by Organizat ion Details LastModified Time Tobacco Smoking Status Current Every Day Smoker Anisha August CMA [facility] 06/23/2023 09:19:18 What Is Your Level Of Caffeine Consumption? Occasional [email or web address] Information not available 06/23/2023 What Type Of Diet Are You Following? REGULAR Information not available 06/23/2023 At What Age Did You Start Smoking Tobacco? 18 [email or web address] Information not available 06/23/2023 How Much Tobacco Do You Smoke? 0.5 PPD [email or web address] Information not available 06/23/2023 Do You Have Any Dietary Restrictions? No [email or web address] Information not available 06/23/2023 Sex: Female Functional Status Question Answer Note LastModified by Organizat ion Details LastModified Time What is your level of alcohol consumption? Occasional [email or web address] Information not available 06/23/2023 What is your exercise level? Occasional [email or web address] Information not available 06/23/2023 Mental Status None recorded. Family History Relationship Description Onset Age of this Age Resolved Age Notes LastModified by Organization Details LastModified Time Mother Hypertensive disorder [email or web address] Not available 09:18:01 Mother Type 2 diabetes mellitus [email or web address] Not available 09:18:18 Maternal Grandmother Hypertensive disorder [email or web address] Not available 09:18:01 Medical History No medical history recorded. Gynecological HistoryNo gynecological history recorded. Obstetrics History GPAL:G 0 P 0 0 0 0 Past Encounters Encounter ID Performer Location Encounter Start Date Encounter Closed Date Diagnosis/Indication Diagnosis SNOMED-CT Code Diagnosis ICD10 Code Diagnosis Note [id number] Sarahy Forrest MD [facility] [address] [place] [address] 06/23/2023 09:05:07 06/23/2023 11:09:15 Asthma 393073501 J45.909 She previously was on symbicort but has only been using albuterol in recent years.Has not seen pulmonolog ist in years.Othe r than current acute illness, symptoms have been stable.She has had symptoms x 4 weeks now and lots of wheezing on exam.Plan to do abx and steroids, if still no improvemen t, XR order given. Chronic diarrhea 5528286 09 K52.9 Has been ongoing problem for last 15 years. States it has form sometimes but mainly watery. Has noticed blood one time, no mucous or undigested food.Colon oscopy 2021 at [facility].Will get labs today. Upper resp iratory infection 45547513 J06.9 Will do course of doxycyclin e, advised to start flonase.Co ntinue otc treatments .She has not been covid tested, so I have advised her to do test to r/o. Vitamin D deficiency 347 08199 E55.9 Not currently on supplement . No previous diagnosis. Cobalamin deficiency 190 326048 E53.8 Not currently on supplement . No previous diagnosis. Chronic ab dominal pain 031840082 R10.9 Has been for last 5 years, mainly left sided. Pain started after a complicate d delivery, but she is unsure if inspector precision or GI related (also hx of endometrio sis). They thought possibly more GI, so she had colonoscop ywhich was normal.Roe l do trial of PPI and dicyclomin e.Will consider imaging if still no improvemen t. Endometrio sis of uterus 36516583 N80.00 S/p hysterecto my. Pt. believes she still has one ovary.If no positive findings on GI work-up, may need to consider inspector precision referral to evaluate further. Loss of hair 992491859 L 65.9 New symptoms. Has also noticed [...] Lopez Member ID Guarantor Name 04/01/2024 1 [facility] (MEDICAID HMO) [id number] Natasha Lin [id number] Natasha Lin Notes Date Note Type Note [...] Not sure if it was GI or inspector precision related. She had colonoscopy done to evaluate pain and states it was all normal.-She is also concerned about hair thinning/graying and states her nails have become more brittle. She thinks she may have a problem with her vitamins. CITLALLI Hernandez [address] [facility], [facility] [address], [place], [address], [place] [facility] 06/23/2023 10:04:25 OBGyn Episode No OBEpisode recorded.
--- OUTSIDE RECORDS SUMMARY | 2025-02-09 13:38 | XMS_ITS | Referral Summary ---
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 Name Role Phone Carlton Tenorio MD Primary Care Provider [phone] Encounters Date Type Department Care Team Description 12/30/2024 4:30 PM CDT E-Visit [facility] [address] [place] [phone] Joie Eubanks NP Your Medications 12/30/2024 Patient Self-Triage [facility] [address] [place], [place] [phone] Mychart, Generic Provider from Last 3 Months [...] on file 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
[2025-02-11 01:07] LABS: Pancreatic Elastase, Fecal >800 (>200)
[2025-02-12 01:07] LABS: Calprotectin, Fecal 19 ug/g (0-120)
== END 2025-02-09 13:30 | disposition home or self-care (01) ==
LOC: ANHLAB 13:29
PROVIDERS: PCP Nurse Practitioner Family; Visit Provider Nurse Practitioner Family
DX: R10.9 Unspecified abdominal pain (principal); R19.7 Diarrhea, unspecified
CPT/HCPCS: 82653; 83993

== ENCOUNTER 2025-03-28 11:35 | Emergency (ER) | payer MEDICAID, SELFPAY ==
[2025-03-28 11:46] VITALS: BP 140/115; PULSE 91; RESP 20; TEMP 37.3; O2SAT 96
--- NOTE | 2025-03-28 11:46 | ED_ITS ---
HPI - Back Pain/Injury General Chief Complaint: Back Pain/Injury Stated Complaint: back pain Time Seen by Provider: 03/28/25 11:52 Source: patient and RN notes reviewed Mode of arrival: ambulatory Limitations: no limitations History of Present Illness HPI Narrative: 39-year-old female presents concern for low mid back pain that started last night. She reports she had an episode of similar pain in the past, they have been increasing more frequently in the last 2 months. She denies any history of injury or trauma. She denies any relieving or exacerbating factors. She denies loss of bowel or bladder function, perianal anesthesia, weakness in any extremity. She denies fever or abdominal pain. She has taken ibuprofen and baclofen without relief MD elicited complaint: back pain Related Data Home Medications ?Medication ?Instructions ?Recorded ?Confirmed ?Last Taken ?Type albuterol sulfate 90 mcg/actuation 1 inh inhalation BI D PRN 05/24/24 02/13/25 Unknown History aerosol inhaler (Ventolin HFA) Allergies Allergy/AdvReac Type Severity Reaction Status Date / Time cat dander Allergy Swelling Verified 03/28/25 11:38 of the Eye Review of Systems Review of Systems: CONSTITUTIONAL: Denies malaise, chills, sweats, or fever. CARDIOVASCULAR: Denies chest pain, palpitations, or edema. RESPIRATORY: Denies cough or dyspnea. GASTROINTESTINAL: Denies abdominal pain, nausea, vomiting, diarrhea, loss of bowel function GENITOURINARY: Denies dysuria, hematuria, frequency, loss of bladder function. SKIN: Denies rash or itching. MUSCULOSKELETAL: Reports low back pain NEUROLOGIC: Denies numbness, weakness, or headache. All systems reviewed & are unremarkable except as noted in HPI and below PMFSH Past Medical History Medical History BMI 28.0-28.9,adult BMI 26.0-26.9,adult Diarrhea Abdominal pain Anxiety Endometriosis Smoker Asthma Surgical History Surgical History History of tubal ligation H/O laparoscopy Family History Family History Grandparent Diabetes mellitus Hypertension Heart disease Mother Hypertension Lung cancer Sibling Depression Father Brain aneurysm Other Lung cancer Other Cerebrovascular accident Social History Social History Smoking packs per day: 0.5 Smoking cigarettes per day: 10.0 Years smoked: 17 Smoking pack-years: 8.50 Smoking status: Current some day smoker Tobacco type: cigarettes Second hand tobacco smoke exposure: No Alcohol intake: current Drinks per week: 5 Substance use: never Substance use type: does not use Do You Feel Safe in your Home?: Yes Lack of Transportation: No Lack of Food: Never True Current Housing: I Have Housing Concerned About Future Housing: No Difficulty Paying Gas/Electric Bills: No Difficulty Paying for Meds: No Currently Unemployed: No Education: High School Diploma/GED Difficulty w/ Childcare or Family Care: No Living arrangements: with family Additional living arrangements comments: boyfriend and daughter Occupation/Education: occupation Additional occupation/education comments: [employer] Gender identity (if verbalized by the patient): Female Spiritual care concerns: No Comments At time of signature, agree with nursing past medical, surgical, social and family history. There is no relevant family history pertinent to the presenting complaint Exam Narrative: GENERAL: Well-appearing, well-nourished, and in no acute distress. Tearful HEAD: Normocephalic, atraumatic. EYES: PERRLA and EOMI. NECK: Supple. No lymphadenopathy. CHEST: Clear to auscultation. No respiratory distress. HEART: Regular rate and rhythm. Distal pulses palpable and equal, cap refill <3 seconds ABDOMEN: Soft, nontender, nondistended, normal active bowel sounds, no palpable or pulsatile masses. No CVA tenderness MUSCULOSKELETAL: Normal range of motion and strength in all extremities; 5/5 strength with hip flexion and extension, dorsiflexion and extension, knee flexion and extension, plantar flexion and extension. Normal sensation in dermatomal distributions with sensitivity to light touch and pain. No midline back tenderness to palpation. No paraspinal tenderness. SKIN: Warm, dry, no rash. No ecchymosis, erythema, open wounds to back. NEURO: No focal deficits. Alert and oriented x3. Reflexes intact. Normal gait. PSYCH: Normal mood and affect Course Course Emergency Course: Patient is aware of diagnosis, understands and agrees to treatment plan. Anticipatory guidance given. Patient agrees to follow-up as directed and is aware of reasons to seek care at the emergency department. Portions of this record may have been created with voice recognition software Level of Care: Express Care Visit Vital Signs Vital signs: Vital Signs Temperature 99.1 F 03/28/25 11:46 Pulse Rate 91 03/28/25 11:46 Respiratory Rate 20 03/28/25 11:46 Blood Pressure 140/115 H 03/28/25 11:46 Pulse Oximetry 96 03/28/25 11:46 Oxygen Delivery Room Air 03/28/25 11:46 Temperature 99.1 F 03/28/25 11:46 Pulse Rate 91 03/28/25 11:46 Respiratory Rate 20 03/28/25 11:46 Blood Pressure 140/115 H 03/28/25 11:46 Pulse Oximetry 96 03/28/25 11:46 Oxygen Delivery Room Air 03/28/25 11:46 Reviewed. MDM - Back Pain/Injury MDM Narrative Medical decision making narrative: I evaluated this in the [facility] care. History is obtained from patient who is an independent historian and physical exam was performed.? Available medical records were reviewed. ? Exam findings and relevant testing show no acute concerns or changes; patient is non-toxic appearing and is in no distress. No risk factors or findings concerning for epidural abscess, diskitis, vertebral osteomyelitis, cord compression, cauda equina, vertebral fracture or bone malignancy, AAA, or pyelonephritis. Patient instructed to consider further imaging and workup through their primary care physician as an outpatient if symptoms persist. ? Differential diagnosis and treatment plan were discussed with the patient. Patient agrees with discussion and after shared medical decision making agrees with plan of care. All questions were answered to the patient's satisfaction. Patient is appropriate for outpatient treatment and follow-up. Critical Care Time Critical Care Time Critical Care Time: No Discharge Plan Discharge Clinical Impression: Nonspecific low back pain Patient Disposition: Home Condition: Stable Instructions: Acute Low Back Pain (ED) Additional Instructions: Please follow up with your Primary Care Doctor within 48-72 hours - call for an appointment. Walking and other gentle exercising several times a week has been shown to improve back pain; bed rest is not recommended. Take prednisone as directed, starting tomorrow your 1st dose was given today at the urgent care, take muscle relaxers every 8 hours as needed for muscle spasm- do not drive or make any important decisions while on this medication for it can make you drowsy. Take pain medicine only for pain not relieved by Tylenol or prednisone. You may apply ice to the area as needed. If you experience any worsening pain, swelling, numbness, weakness please go to ER. Contact your doctor or go to the emergency department if you develop problems with bladder or bowel function, weakness or loss of feeling in one or both of your legs, or any other serious concerns. Patient Language: Chilean Prescriptions: New cyclobenzaprine 10 mg tablet 10 mg PO TID PRN (Reason: muscle spasm) Qty: 20 0RF prednisone 50 mg tablet 50 mg PO DAILY 4 Days Qty: 4 0RF hydrocodone-acetaminophen 5-325 mg tablet 1 tablet PO Q6H PRN (Reason: pain) Qty: 5 0RF No Action albuterol sulfate [Ventolin HFA] 90 mcg/actuation HFA aerosol inhaler 1 inh inhalation BID PRN dicyclomine 10 mg capsule 10 mg PO QID Qty: 120 3RF loperamide [Anti-Diarrheal (loperamide)] 2 mg tablet 2 mg PO Q6H PRN (Reason: loose stool) Qty: 60 3RF cholecalciferol (vitamin D3) 125 mcg (5,000 unit) capsule 125 mcg PO DAILY Qty: 90 0RF fluticasone propionate 50 mcg/actuation spray,suspension 1 spray intranasal DAILY Qty: 16 2RF Rx Instructions: administer into each nostril bupropion HCl (smoking deter) 150 mg tablet extended release 12 hr 150 mg PO BID Qty: 60 5RF omeprazole 40 mg capsule,delayed release(DR/EC) See Rx Instructions .ROUTE .COMPLEX Qty: 30 3RF Dose Instruction: Take 1 capsule by mouth once daily Rx Instructions: Take 1 capsule by mouth once daily Follow-up/Referrals: Marina Celeste, EMERGENCY DEPARTMENT COORDINATOR [Primary Care Provider, Family Practice] Stand Alone Forms: Work/School Release IP Time of Disposition: 12:06
== END 2025-03-28 12:10 | disposition home or self-care (01) ==
PROVIDERS: Emergency Provider Nurse Practitioner; PCP Nurse Practitioner Family
DX: M54.50 Low back pain, unspecified (principal); F17.210 Nicotine dependence, cigarettes, uncomplicated; N80.9 Endometriosis, unspecified; J45.909 Unspecified asthma, uncomplicated
CPT/HCPCS: 99213; G0463; J7512

== ENCOUNTER → 2025-03-30 10:05 | Outpatient (CLI) | payer MEDICAID, SELFPAY ==
--- NOTE | ~2025-03-30 | XR_ITS ---
XR lumbar spine 2-3V Indication: M54.50 - LBP off/on months, flare up for 3x days no injury Comparison: None Findings: The vertebral heights are intact. No fracture or subluxation. The disc heights are intact. Soft tissues unremarkable Impression: No acute abnormality. Reviewed, dictated and finalized at location A. Impression: No acute abnormality.
== END ==
LOC: EXPCRAD 10:06
PROVIDERS: PCP Nurse Practitioner Family; Visit Provider Nurse Practitioner Family
DX: M54.50 Low back pain, unspecified (principal)
CPT/HCPCS: 72100

== ENCOUNTER 2025-04-30 12:04 | Emergency (ER) | payer OTHER, SELFPAY ==
--- NOTE | 2025-04-30 12:10 | ED.SKABFB ---
HPI - Skin/Abscess/Foreign Bdy General Chief complaint: Skin/Abscess/Foreign Body Stated complaint: rash Time Seen by Provider: 04/30/25 12:05 Source: patient Mode of arrival: ambulatory Limitations: no limitations History of Present Illness HPI narrative: Patient is a 39-year-old female who presents with 3 days of rash to bilateral upper arms and thighs. Rash is circular in nature with central clearing. Various sizes of circles. Has tried cortisone cream, eczema cream and oral Benadryl. Denies any fever, chills, nausea, vomiting, diarrhea Related Data Home Medications ?Medication ?Instructions ?Recorded ?Confirmed ?Last Taken ?Type albuterol sulfate 90 mcg/actuation 1 inh inhalation BID PRN 05/24/24 02/13/25 Unknown History aerosol inhaler (Ventolin HFA) Allergies Allergy/AdvReac Type Severity Reaction Status Date / Time cat dander Allergy Swelling Verified 04/30/25 12:15 of the Eye Review of Systems Review of Systems: All systems reviewed & are unremarkable except as noted in HPI and below Constitutional: Constitutional: Denies body ache(s), Denies chills, Denies fatigue, Denies fever(s), Denies headache(s), Denies malaise and Denies weakness Eyes: Eyes: Denies blurry vision, Denies irritation and Denies loss of vision ENT: Denies otalgia, Denies headache(s), Denies nasal discharge, Denies sinus pain and Denies sore throat Cardiovascular: Cardiovascular: Denies chest pain, Denies irregular heart rhythm and Denies dyspnea Respiratory: Respiratory: Denies dyspnea Gastrointestinal: Gastrointestinal: Denies abdominal pain, Denies melena, Denies hematochezia, Denies diarrhea, Denies nausea and Denies vomiting Musculoskeletal: Musculoskeletal: Denies back pain, Denies myalgias and Denies arthralgias Integumentary/Breasts: Skin/Breast: Denies pruritus and Reports rash Neurologic: Denies headache(s), Denies loss of vision and Denies weakness Psychiatric: Psychiatric: Reports no additional psychiatric complaints Endocrine: Endocrine: Denies fatigue PMFSH Past Medical History Medical History BMI 28.0-28.9,adult BMI 26.0-26.9,adult Diarrhea Abdominal pain Anxiety Endometriosis Smoker Asthma Surgical History Surgical History History of tubal ligation H/O laparoscopy Family History Family History Grandparent Diabetes mellitus Hypertension Heart disease Mother Hypertension Lung cancer Sibling Depression Father Brain aneurysm Other Lung cancer Other Cerebrovascular accident Social History Social History Smoking packs per day: 0.5 Smoking cigarettes per day: 10.0 Years smoked: 17 Smoking pack-years: 8.50 Smoking status: Current some day smoker Tobacco type: cigarettes Second hand tobacco smoke exposure: No Alcohol intake: current Drinks per week: 5 Substance use: never Substance use type: does not use Do You Feel Safe in your Home?: Yes Lack of Transportation: No Lack of Food: Never True Current Housing: I Have Housing Concerned About Future Housing: No Difficulty Paying Gas/Electric Bills: No Difficulty Paying for Meds: No Currently Unemployed: No Education: High School Diploma/GED Difficulty w/ Childcare or Family Care: No Living arrangements: with family Additional living arrangements comments: boyfriend and daughter Occupation/Education: occupation 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 There is no relevant family history pertinent to the presenting complaint. Exam Const: General: cooperative, healthy appearing, comfortable, no acute distress and well nourished Nutritional Appearance: well nourished Orientation/consciousness: patient oriented x3 Limitations: no limitations HENMT: Head: normal to inspection, normocephalic and atraumatic Ears: hearing grossly normal bilaterally and external ears normal Face/Nose/Sinus: Normal external nose present, normal facial exam and face symmetric Face and sinus: normal facial exam and face symmetric Mouth: Yes lip normal Eyes: General: appearance normal, both eyes and all related structures Alignment and Position: alignment normal and position normal Periorbital: periorbital findings normal Eyelids: eyelids normal Pupils: Equal, round and reactive pupils present EOM: EOMs intact bilaterally Neck: Neck: normal visual inspection, full ROM and supple Chest: Chest palpation & inspection: normal inspection of the chest Resp: Effort & Inspection: normal respiratory effort and able to speak in complete sentences Auscultation: clear to auscultation bilaterally Cardio: Rate: regular rate Rhythm: regular rhythm Heart sounds: S1 normal heart sound present and S2 normal heart sound present GI: Inspection: normal to inspection Skin: General skin exam: normal color Rashes: rashes noted (bilateral arms and thighs) patches bilateral multiple locations size (ranging from 1 cm to 2.5 cm), arrangement grouped, borders sharp and irregular and color red and with central clearing; nontender Neuro: General: patient oriented x3 and moves all extremities Cranial nerves: Yes Equal, round and reactive pupils present Speech: normal speech Gait exam (Neuro): Normal gait present Extrem: General: normal to inspection, full ROM and no edema Psych: Appearance: grossly normal and well kempt Mental Status: mental status grossly normal Speech and movement: Normal speech and movement present Affect: normal affect Attitude: cooperative Thought process: Normal thought process present Course Course Emergency Course: Patient is aware of diagnosis, understands and agrees to treatment plan. Anticipatory guidance given. Patient agrees to follow-up as directed and is aware of reasons to seek care at the emergency department. Portions of this record may have been created with voice recognition software Level of Care: Express Care Visit Vital Signs Vital signs: Vital Signs Temperature 36.4 C L 04/30/25 12:11 Pulse Rate 85 04/30/25 12:11 Respiratory Rate 16 04/30/25 12:11 Blood Pressure 135/83 04/30/25 12:11 Pulse Oximetry 100 04/30/25 12:11 Oxygen Delivery Room Air 04/30/25 12:11 Temperature 36.4 C L 04/30/25 12:11 Pulse Rate 85 04/30/25 12:11 Respiratory Rate 16 04/30/25 12:11 Blood Pressure 135/83 04/30/25 12:11 Pulse Oximetry 100 04/30/25 12:11 Oxygen Delivery Room Air 04/30/25 12:11 Reviewed MDM - Skin/Abscess/Foreign Bdy MDM Narrative Medical decision making narrative: Pt well hydrated appearing, in no respiratory distress, hemodynamically stable. Recommend supportive care. The patient is stable at time of discharge the clinical impression was discussed and the patient was given the opportunity to ask questions, which were addressed as completely as possible given the information available at present. Anticipatory guidance and return to care precautions were discussed and the importance of primary care follow-up was stressed and encouraged. The patient voiced understanding of the plan, indications to return, and the need for follow-up. Exam findings show no acute concerns or changes Patient is appropriate for outpatient treatment and follow-up. Differential Diagnosis Differential diagnosis: Likely viral exanthem, urticaria, cellulitis, insect bites, contact dermatitis and other (Tinea corporis) Medical Records Attestation: I reviewed the patient's medical records. Discharge Plan Discharge Clinical Impression: Tinea corporis Patient Disposition: Home Condition: Stable Instructions: Tinea Corporis (ED) Additional Instructions: Take medication as prescribed. Dry thouroghly after bathing. Follow-up with your primary care provider if your symptoms do not improve. Go to the ER if you have any urgent concerns. Patient Language: Divehi Prescriptions: New fluconazole 150 mg tablet 150 mg PO WEEKLY 28 Days Qty: 4 0RF No Action cyclobenzaprine 10 mg tablet 10 mg PO TID PRN (Reason: muscle spasm) Qty: 20 0RF albuterol sulfate [Ventolin HFA] 90 mcg/actuation HFA aerosol inhaler 1 inh inhalation BID PRN loperamide [Anti-Diarrheal (loperamide)] 2 mg tablet 2 mg PO Q6H PRN (Reason: loose stool) Qty: 60 3RF lidocaine 5 % adhesive patch,medicated 1 patch topical DAILY Qty: 30 0RF Rx Instructions: leave on most painful area for up to 12 hrs cholecalciferol (vitamin D3) 125 mcg (5,000 unit) capsule 125 mcg PO DAILY Qty: 90 0RF fluticasone propionate 50 mcg/actuation spray,suspension 1 spray intranasal DAILY Qty: 16 2RF Rx Instructions: administer into each nostril bupropion HCl (smoking deter) 150 mg tablet extended release 12 hr 150 mg PO BID Qty: 60 5RF omeprazole 40 mg capsule,delayed release(DR/EC) See Rx Instructions .ROUTE .COMPLEX Qty: 30 3RF Dose Instruction: Take 1 capsule by mouth once daily Rx Instructions: Take 1 capsule by mouth once daily dicyclomine 10 mg capsule 10 mg PO QID Qty: 120 3RF diphenoxylate-atropine [Lomotil] 2.5-0.025 mg tablet 1 tablet PO TID Qty: 90 5RF Follow-up/Referrals: Marina Celeste, TECHNICAL SERVICES SPECIALIST [Primary Care Provider, Family Practice] - 3 Days Stand Alone Forms: Work/School Release IP Time of Disposition: 12:45
[2025-04-30 12:11] VITALS: BP 135/83; PULSE 85; RESP 16; TEMP 36.4; O2SAT 100
== END 2025-04-30 12:50 | disposition home or self-care (01) ==
PROVIDERS: Emergency Provider Nurse Practitioner Family; PCP Nurse Practitioner Family
DX: B35.4 Tinea corporis (principal); F17.210 Nicotine dependence, cigarettes, uncomplicated; J45.909 Unspecified asthma, uncomplicated; N80.9 Endometriosis, unspecified; F41.9 Anxiety disorder, unspecified
CPT/HCPCS: 99213; G0463

== ENCOUNTER 2025-05-11 13:15 | Outpatient (RCR) | payer OTHER, SELFPAY ==
--- NOTE | 2025-04-20 14:29 | OPREHPOC ---
Outpatient Therapy Plan of Care This is a Multidisciplinary Plan of Care that may contain components documented by all disciplines (PT, OT, and ST.) PT Problem 1 PT Problem #1 Knowledge Deficit PT Goal 1 Goal / Goal Update 1*independent with HEP 2* correct lifting from the floor Target Visit 8 PT Problem 2 PT Problem #2 Pain PT Goal 1 Goal / Goal Update 1* pt report pain rating of 3/10 at worst 2* pt report times of NO pain 3* pt report able to tolerate sitting 30 minutes Target Visit 8 PT Problem 3 PT Problem #3 Impaired Strength PT Goal 1 Goal / Goal Update 1* pt perform bilateral UE, 20# box lift, waist/ floor height x 3 reps without pain increase 2* gross strength of trunk and hips 4+/5 Target Visit 8 PT Problem 4 PT Problem #4 Impaired Flexibility PT Goal 1 Goal / Goal Update increase flexibility of hips pt perform without pain increase: 1* supine L hip flexion 2* supine L hip IR 3* supine R piriformis stretch with cross leg hamstring length with supine SLR to 75' 4* R 5* L Target Visit 8
--- NOTE | 2025-04-20 14:29 | PTOPEVAL1 ---
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 She reports flare ups that are excruciating and she cannot move. Recent lumbar x ray was negative. She is also having abdominal issues and having testing done for stomach pain. With the evaluation: standing trunk flexion, supine L hip flexion and IR increase her pain; hamstrings are slightly tight and with stretching, does not have pain; weakness over trunk and abdominals; stand with slight lumbar lordosis and in prone, L sacrum is more posterior. Skilled PT services are indicated for treatment of sacral-iliac dysfunction: modalities to decrease muscle spasm and pain, therapeutic exercises to increase stability to sacrum and trunk, with education for body mechanics, posture and pain management. Plan of Care Interventions Electrical Stimulation,Hot Pack/Cold Pack,Manual Therapy,Mechanical Traction,Neuro Re-education, Patient/Caregiver Education,Therapeutic Activities ,Therapeutic Exercise,Ultrasound,Other Other Interventions taping PT Services Indicated Yes Treatment Frequency and 1-2x/wk for 8 visits Duration These treatments will address the objective and functional deficits as defined above. The patient will be advanced safely and appropriately in order for the patient to progress towards his/her prior level of function. Additional exercises will be introduced and as well as a comprehensive home exercise program upon discharge, if needed, ?to ensure carryover of functional gains achieved in the clinic. This treatment plan has been reviewed and agreement upon by the patient.
--- NOTE | 2025-05-01 13:38 | PCPTNOTE ---
pt canceled due to illness.
--- NOTE | 2025-05-17 13:46 | PCPTNOTE ---
NC/NS Called and left mssg: Reminder of today and next appt 05-23-25. AKS
--- NOTE | 2025-06-05 09:33 | OPREHPOC ---
Outpatient Therapy Plan of Care This is a Multidisciplinary Plan of Care that may contain components documented by all disciplines (PT, OT, and ST.) PT Problem 1 PT Problem #1 Knowledge Deficit PT Goal 1 Goal / Goal Update 1*independent with HEP 2* correct lifting from the floor 06-05-25 d/c per pt request goals were not addressed Target Visit 8 PT Problem 2 PT Problem #2 Pain PT Goal 1 Goal / Goal Update 1* pt report pain rating of 3/10 at worst 2* pt report times of NO pain 3* pt report able to tolerate sitting 30 minutes 06-05-25 d/c per pt request goals were not addressed Target Visit 8 PT Problem 3 PT Problem #3 Impaired Strength PT Goal 1 Goal / Goal Update 1* pt perform bilateral UE, 20# box lift, waist/ floor height x 3 reps without pain increase 2* gross strength of trunk and hips 4+/5 Target Visit 8 PT Problem 4 PT Problem #4 Impaired Flexibility PT Goal 1 Goal / Goal Update increase flexibility of hips pt perform without pain increase: 1* supine L hip flexion 2* supine L hip IR 3* supine R piriformis stretch with cross leg hamstring length with supine SLR to 75' 4* R 06-05-25 d/c per pt request goals were not addressed 5* L Target Visit 8
--- NOTE | 2025-06-05 09:33 | PTOPDC ---
Assessment and note entered by Vijaya Otero, PT Assessment Status Discharge - Pt Not Present ICD-10 Condition Codes (PT) Pain in low back M54.50 Onset December 2024 Subjective Information pt called and canceled all PT due to too busy to do therapy right now. Assessment PT Clinical Summary Natasha received the PT evaluation on April 20 and 1 treatment session. She called and canceled 2 and did not show for 1 appointment. Then on June 01, called and canceled PT due to too busy at this time to do therapy. Discharge PT per pt request. The goals were not addressed. Plan of Care PT Services Indicated No
== END 2025-06-05 11:27 | disposition home or self-care (01) ==
LOC: ANHPT 13:15
PROVIDERS: PCP Nurse Practitioner Family; Visit Provider Nurse Practitioner Family
DX: M54.50 Low back pain, unspecified (principal); G89.29 Other chronic pain
CPT/HCPCS: 97110; 97140; 97161; 97530

== ENCOUNTER 2025-05-16 00:42 | Day surgery (SDC) | payer OTHER, SELFPAY ==
[2025-05-09 13:53] VITALS: BMI 26.7
--- OUTSIDE RECORDS SUMMARY | 2025-05-16 00:46 | XMS_ITS | Clinical Summary ---
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 Name Role Phone Carlton Tenorio MD Primary Care Provider [phone] Allergies No known active allergies Medications budesonide-form [...] breath for wheezing 18 g 4 Active Active Problems Problem Noted Date Diagnosed Date [...] on file Legal Sex Female 8:40 PM [employer]IFICIAL [employer] Gender Identity Not on file Sexual Orientation [...] Screening 2004 Regular Well Visit/Exam 18-64 2004 HPV Vaccines (1 - 3-dose SCD M series) 2013 Depression Screening 11/28/2022 11/28/2021, 10/03/2021 DTaP/Tdap/Td Vaccine (3 - Td or Tdap) 04/02/2024 04/02/2014, 07/20/2013 Influenza Vaccine (#1) 2025 04/19/2022 Pneumococcal vaccine <65 (1 of 2 - PCV) 12/30/2033 Postponed from 06/16 (Provider's clinical decision) Insurance [facility] Care Teams Leather Case Finisher Relationship Specialty Start Date End Date Carlton Tenorio MD PCP - General Family Medicine 10/03/21
[2025-05-16 13:08] VITALS: BP 116/87; PULSE 77; RESP 18; TEMP 36.2; O2SAT 100
[2025-05-16] MEDS: LACTATED RINGERS 1,000 ML 150 ML IV CONT (13:19)
--- NOTE | 2025-05-16 13:25 | WPDANESEPPF ---
Anes - Initial Pre Proc Eval Procedure: Operation Date: 05/16/25 14:00 Proposed Procedures p Diagnostic Colonoscopy - Manuel Mantilla MD Date/Time: 05/16/25 13:25 Surgeon: Manuel Mantilla MD Pre Op Diagnosis: Noninfective gastroenteritis and colitis, unspecif Patient Data Age: 39 Gender: F Height: 1.65 m Weight: 73.3 kg Last Vital Signs Temp 97.2 F L 05/16/25 13:08 Pulse 77 05/16/25 13:08 Resp 18 05/16/25 13:08 BP 116/87 05/16/25 13:08 Pulse Ox 100 05/16/25 13:08 O2 Del Method Room Air 05/16/25 13:08 Allergies Allergy/AdvReac Type Severity Reaction Status Date / Time cat dander Allergy Swelling Verified 05/16/25 13:06 of the Eye Home Medications ?Medication ?Instructions ?Recorded ?Confirmed ?Type cholecalciferol (vitamin D3) 125 125 mcg PO DAILY #90 caps 05/25/24 05/16/25 Rx mcg (5,000 unit) capsule fluticasone propionate 50 1 spray intranasal DAILY #16 grams 03/21/25 05/16/25 Rx mcg/actuation nasal spray,suspension bupropion HCl (smoking deter) 150 150 mg PO BID #60 tabs 03/23/25 05/16/25 Rx mg tablet,12 hr sustained-release(smoking deterrent) cyclobenzaprine 10 mg tablet 10 mg PO TID PRN muscle spasm #20 03/28/25 05/09/25 Rx tabs lidocaine 5 % topical patch 1 patch topical DAILY #30 ea 03/29/25 05/16/25 Rx dicyclomine 10 mg capsule 10 mg PO QID #120 caps 04/13/25 05/16/25 Rx diphenoxylate-atropine 2.5 1 tablet PO TID #90 tabs 04/13/25 05/16/25 Rx mg-0.025 mg tablet (Lomotil) omeprazole 40 mg capsule,delayed See Rx Instructions .Route 04/13/25 05/16/25 Rx release .COMPLEX #30 caps fluconazole 150 mg tablet 150 mg PO WEEKLY 4 weeks #4 tabs 04/30/25 05/09/25 Rx albuterol sulfate 90 mcg/actuation 1 inh inhalation BID PRN shortness 05/09/25 05/16/25 Rx aerosol inhaler (Ventolin HFA) of breath or wheezing #6.7 grams Patient hx anesthesia problems: none Family hx anesthesia problems: none Results Review: All pre-operative results and documents have been reviewed as part of the pre-operative evaluation. [facility] Past Medical History Medical History BMI 28.0-28.9,adult BMI 26.0-26.9,adult Diarrhea Abdominal pain Anxiety Endometriosis Smoker Asthma Surgical History Surgical History History of tubal ligation H/O laparoscopy Family History Family History Grandparent Diabetes mellitus Hypertension Heart disease Mother Hypertension Lung cancer Sibling Depression Father Brain aneurysm Other Lung cancer Other Cerebrovascular accident Social History Social History Smoking packs per day: 0.5 Smoking cigarettes per day: 10.0 Years smoked: 17 Smoking pack-years: 8.50 Smoking status: Current some day smoker Tobacco type: cigarettes Second hand tobacco smoke exposure: No Alcohol intake: current Drinks per week: 5 Substance use: never Substance use type: does not use Do You Feel Safe in your Home?: Yes Lack of Transportation: No Lack of Food: Never True Current Housing: I Have Housing Concerned About Future Housing: No Difficulty Paying Gas/Electric Bills: No Difficulty Paying for Meds: No Currently Unemployed: No Education: High School Diploma/GED Difficulty w/ Childcare or Family Care: No Living arrangements: with family Additional living arrangements comments: boyfriend and daughter Occupation/Education: occupation 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 ) Neurological: alert and oriented Last oral intake: >/= 8 hours ASA classification: II Emergent: no Anesthetic plan: proceed Anesthesia type and monitoring: general GIVS and standard monitoring Results Review: All pre-operative results and documents have been reviewed as part of the pre-operative evaluation. Ex smoker, quit 01/2025. Informed Consent: The patient's anesthetic plan and its attendant risks and benefits were discussed with the patient/family/POA. Questions were solicited and answers provided to the satisfaction of the patient/family/POA.
--- NOTE | 2025-05-16 13:46 | PM.HPGS ---
History of Present Illness History of Present Illness Consent: Risks, benefits, and alternatives have been discussed and questions answered. Patient agrees to proceed with procedure. Chief complaint: Noninfective gastroenteritis and colitis, unspecif Narrative: Natasha Lin is a 39 year old female here for colonoscopy, had one about 5 years ago. History of diarrhea, normal stool calprotectin, study negative for EPI. Review of Systems Review of Systems: All systems reviewed & are unremarkable except as noted in HPI and below PMFSH Past Medical History Medical History BMI 28.0-28.9,adult BMI 26.0-26.9,adult Diarrhea Abdominal pain Anxiety Endometriosis Smoker Asthma Surgical History Surgical History History of tubal ligation H/O laparoscopy Family History Family History Grandparent Diabetes mellitus Hypertension Heart disease Mother Hypertension Lung cancer Sibling Depression Father Brain aneurysm Other Lung cancer Other Cerebrovascular accident Social History Social History Smoking packs per day: 0.5 Smoking cigarettes per day: 10.0 Years smoked: 17 Smoking pack-years: 8.50 Smoking status: Current some day smoker Tobacco type: cigarettes Second hand tobacco smoke exposure: No Alcohol intake: current Drinks per week: 5 Substance use: never Substance use type: does not use Do You Feel Safe in your Home?: Yes Lack of Transportation: No Lack of Food: Never True Current Housing: I Have Housing Concerned About Future Housing: No Difficulty Paying Gas/Electric Bills: No Difficulty Paying for Meds: No Currently Unemployed: No Education: High School Diploma/GED Difficulty w/ Childcare or Family Care: No Living arrangements: with family Additional living arrangements comments: boyfriend and daughter Occupation/Education: occupation 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[employer] Gender identity (if verbalized by the patient): Female Spiritual care concerns: No Meds Home Medications and Allergies Home Medications ?Medication ?Instructions ?Recorded ?Confirmed ?Type cholecalciferol (vitamin D3) 125 125 mcg PO DAILY #90 caps 05/25/24 05/16/25 Rx mcg (5,000 unit) capsule fluticasone propionate 50 1 spray intranasal DAILY #16 grams 03/21/25 05/16/25 Rx mcg/actuation nasal spray,suspension bupropion HCl (smoking deter) 150 150 mg PO BID #60 tabs 03/23/25 05/16/25 Rx mg tablet,12 hr sustained-release(smoking deterrent) cyclobenzaprine 10 mg tablet 10 mg PO TID PRN muscle spasm #20 03/28/25 05/09/25 Rx tabs lidocaine 5 % topical patch 1 patch topical DAILY #30 ea 03/29/25 05/16/25 Rx dicyclomine 10 mg capsule 10 mg PO QID #120 caps 04/13/25 05/16/25 Rx diphenoxylate-atropine 2.5 1 tablet PO TID #90 tabs 04/13/25 05/16/25 Rx mg-0.025 mg tablet (Lomotil) omeprazole 40 mg capsule,delayed See Rx Instructions .Route 04/13/25 05/16/25 Rx release .COMPLEX #30 caps fluconazole 150 mg tablet 150 mg PO WEEKLY 4 weeks #4 tabs 04/30/25 05/09/25 Rx albuterol sulfate 90 mcg/actuation 1 inh inhalation BID PRN shortness 05/09/25 05/16/25 Rx aerosol inhaler (Ventolin HFA) of breath or wheezing #6.7 grams Allergies Allergy/AdvReac Type Severity Reaction Status Date / Time cat dander Allergy Swelling Verified 05/16/25 13:06 of the Eye Vital Signs Vital Signs - 24 hr 05/16/25 13:08 Temperature 97.2 F L Pulse Rate 77 Respiratory Rate 18 Blood Pressure 116/87 Pulse Oximetry 100 Oxygen Delivery Room Air Exam Const: General: comfortable and no acute distress HENMT: Face/Nose/Sinus: Normal nares present Eyes: General: appearance normal, both eyes and all related structures Neck: Neck: no JVD Resp: Auscultation: clear to auscultation bilaterally Cardio: Rate: regular rate Rhythm: regular rhythm GI: Inspection: non-distended GI Palp: Yes Soft to palpation Skin: General skin exam: normal color Neuro: General: gait normal Speech: normal speech Extrem: General: normal to inspection Psych: Mental Status: mental status grossly normal Assessment and Plan Assessment and plan (1) Diarrhea: Qualifiers: Diarrhea type: functional diarrhea Qualified Code(s): K59.1 - Functional diarrhea Code(s): R19.7 - Diarrhea, unspecified Status: Acute Assessment and Plan: colonoscopy with bx
--- NOTE | 2025-05-16 14:01 | S_PTH ---
PATIENT: Natasha Lin LOC: [facility] [place]#:[id number] AGE/SX: 39/F ROOM: RE05/16/[address]: Manuel Mantilla MD : 1985 BED: DIS: 05/16/2025 SPEC #: [id number] RECD: 05/16/25 14:03 STATUS: JENNIFER REJoseph #: [id number] [place]: 05/16/25 14:[address]: Manuel Mantilla DEPT: [facility] Surgical RECD BY: Flor Guo ENTERED: 05/16/25 14:03 SP TYPE: Surgical OTHR DR: Marina Celeste, RONALD Tissues: A - Colon Biopsy Procedures: Hematoxylin and Eosin Stain Gross and Microscopic Level 4
[2025-05-16 14:03] VITALS: BP 116/83; PULSE 78; RESP 18; O2SAT 100
[2025-05-16 14:13] VITALS: BP 120/84; PULSE 73; RESP 22; O2SAT 99
[2025-05-16 14:23] VITALS: BP 155/90; PULSE 71; RESP 26; O2SAT 100
== END 2025-05-16 14:30 | disposition home or self-care (01) ==
PROVIDERS: PCP Nurse Practitioner Family; Referring Provider Nurse Practitioner Family; Visit Provider Internal Medicine Gastroenterology
PROC: 0DJD8ZZ Inspection of Lower Intestinal Tract, Via Natural or Artificial Opening Endoscopic (ICD-10-PCS; CPT 45378; principal; 2025-05-16 14:00)
DX: K64.8 Other hemorrhoids (principal); F41.9 Anxiety disorder, unspecified; J45.909 Unspecified asthma, uncomplicated; N80.9 Endometriosis, unspecified; F17.210 Nicotine dependence, cigarettes, uncomplicated; Z79.51 Long term (current) use of inhaled steroids; Z98.51 Tubal ligation status; Z80.1 Family history of malignant neoplasm of trachea, bronchus and lung; Z82.49 Family history of ischemic heart disease and other diseases of the circulatory system
CPT/HCPCS: 45380; 88305; J2003; J2704; J7120

== ENCOUNTER 2025-05-30 00:46 | Day surgery (SDC) | payer OTHER, SELFPAY ==
[2025-05-23 15:07] VITALS: BMI 27.7
[2025-05-30 06:47] VITALS: BP 137/99; PULSE 83; RESP 16; TEMP 36; O2SAT 100; BMI 28.3
[2025-05-30] MEDS: LACTATED RINGERS 1,000 ML 150 ML IV CONT (06:53)
--- NOTE | 2025-05-30 06:53 | WPDANESEPPF ---
Anes - Initial Pre Proc Eval Procedure: Operation Date: 05/30/25 07:45 Proposed Procedures p Esophagogastroduodenoscopy - Manuel Mantilla MD Date/Time: 05/30/25 06:53 Surgeon: Manuel Mantilla MD Pre Op Diagnosis: Gastro-esophageal reflux disease without esophagit Patient Data Age: 39 Gender: F Height: 1.63 m Weight: 74.8 kg Last Vital Signs Temp 36.0 C L 05/30/25 06:47 Pulse 83 05/30/25 06:47 Resp 16 05/30/25 06:47 BP 137/99 H 05/30/25 06:47 Pulse Ox 100 05/30/25 06:47 O2 Del Method Room Air 05/30/25 06:47 Allergies Allergy/AdvReac Type Severity Reaction Status Date / Time cat dander Allergy Swelling Verified 05/30/25 06:45 of the Eye Home Medications ?Medication ?Instructions ?Recorded ?Confirmed ?Type cholecalciferol (vitamin D3) 125 125 mcg PO DAILY #90 caps 05/25/24 05/30/25 Rx mcg (5,000 unit) capsule fluticasone propionate 50 1 spray intranasal DAILY #16 grams 03/21/25 05/30/25 Rx mcg/actuation nasal spray,suspension bupropion HCl (smoking deter) 150 150 mg PO BID #60 tabs 03/23/25 05/23/25 Rx mg tablet,12 hr sustained-release(smoking deterrent) cyclobenzaprine 10 mg tablet 10 mg PO TID PRN muscle spasm #20 03/28/25 05/23/25 Rx tabs lidocaine 5 % topical patch 1 patch topical DAILY #30 ea 03/29/25 05/23/25 Rx dicyclomine 10 mg capsule 10 mg PO QID #120 caps 04/13/25 05/30/25 Rx diphenoxylate-atropine 2.5 1 tablet PO TID #90 tabs 04/13/25 05/30/25 Rx mg-0.025 mg tablet (Lomotil) omeprazole 40 mg capsule,delayed See Rx Instructions .Route 04/13/25 05/30/25 Rx release .COMPLEX #30 caps fluconazole 150 mg tablet 150 mg PO WEEKLY 4 weeks #4 tabs 10/12/25 11/04/25 Rx albuterol sulfate 90 mcg/actuation 1 inh inhalation BID PRN shortness 05/09/25 05/23/25 Rx aerosol inhaler (Ventolin HFA) of breath or wheezing #6.7 grams Patient hx anesthesia problems: none Family hx anesthesia problems: none Results Review: All pre-operative results and documents have been reviewed as part of the pre-operative evaluation. [facility] Past Medical History Medical History (Updated 05/30/25 @ 06:53 by Spenser Noland MD) BMI 28.0-28.9,adult Diarrhea Abdominal pain Anxiety Endometriosis Smoker Asthma Surgical History Surgical History History of tubal ligation H/O laparoscopy Family History Family History Grandparent Diabetes mellitus Hypertension Heart disease Mother Hypertension Lung cancer Sibling Depression Father Brain aneurysm Other Lung cancer Other Cerebrovascular accident Social History Social History Smoking packs per day: 0.5 Smoking cigarettes per day: 10.0 Years smoked: 17 Smoking pack-years: 8.50 Smoking status: Current every day smoker Tobacco type: cigarettes Second hand tobacco smoke exposure: No Alcohol intake: current Drinks per week: 5 Alcohol use details: Socially Substance use: never Substance use type: does not use Do You Feel Safe in your Home?: Yes Lack of Transportation: No Lack of Food: Never True Current Housing: I Have Housing Concerned About Future Housing: No Difficulty Paying Gas/Electric Bills: No Difficulty Paying for Meds: No Currently Unemployed: No Education: High School Diploma/GED Difficulty w/ Childcare or Family Care: No Living arrangements: with family Additional living arrangements comments: boyfriend and daughter Occupation/Education: occupation 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 Informed Consent: The patient's anesthetic plan and its attendant risks and benefits were discussed with the patient/family/POA. Questions were solicited and answers provided to the satisfaction of the patient/family/POA.
--- NOTE | 2025-05-30 07:43 | WPDHPUPDATE1 ---
History and Physical Update Update Date/Time: 05/30/25 07:43 History and Physical has been reviewed, including an updated exam of the patient. There are NO changes in the patient's condition. Risks, benefits, and alternatives have been discussed and questions answered. Patient agrees to proceed with procedure.
--- NOTE | 2025-05-30 07:49 | S_PTH ---
PATIENT: Natasha Lin LOC: [facility]#:[id number] AGE/SX: 39/F ROOM: RE05/30/[address]: Manuel Manitlla MD : [id number] BED: DIS: 05/30/2025 SPEC #: [id number] RECD: 05/30/25 08:15 STATUS: JENNIFER REJoseph #: [id number] [place]: 05/30/25 07:[address]: Manuel Mantilla DEPT: [facility] Surgical RECD BY: Flor Guo ENTERED: 05/30/25 08:15 SP TYPE: Surgical OTHR DR: Marina Celeste, RONALD Tissues: A - Gastric Biopsy B - Small Bowel Bx Procedures: Hematoxylin and Eosin Stain Gross and Microscopic Level 4
[2025-05-30 07:57] VITALS: BP 123/78; PULSE 81; RESP 16; O2SAT 99
[2025-05-30 08:07] VITALS: BP 143/95; PULSE 78; RESP 20; O2SAT 99
[2025-05-30 08:17] VITALS: BP 130/88; PULSE 78; RESP 18; O2SAT 100
--- NOTE | 2025-05-30 08:33 | SUR.PHASEII ---
Patient woke up in post op room and took a piece of her tooth came out. It is was from the front left side of the top teeth. I placed the piece in a cup and she took it home. Education provided and instructed to follow up with her dentist.
== END 2025-05-30 08:33 | disposition home or self-care (01) ==
PROVIDERS: PCP Nurse Practitioner Family; Referring Provider Internal Medicine Gastroenterology; Visit Provider Internal Medicine Gastroenterology
PROC: 0DJ08ZZ Inspection of Upper Intestinal Tract, Via Natural or Artificial Opening Endoscopic (ICD-10-PCS; CPT 43239; principal; 2025-05-30 07:45)
DX: R10.13 Epigastric pain (principal); K44.9 Diaphragmatic hernia without obstruction or gangrene; F17.210 Nicotine dependence, cigarettes, uncomplicated
CPT/HCPCS: 43239; 88305; J2003; J2704; J7120

== ENCOUNTER 2025-06-21 13:27 | Outpatient (CLI) | payer OTHER, SELFPAY ==
--- NOTE | 2025-06-21 13:54 | ECG_ITS ---
Test Date: 2025-06-21 14:03:26 Measurements Intervals [place] Rate: 69 P: 21 GA: 132 QRS: 43 QRSD: 96 T: -5 QT: 390 QTc: 419 Interpretive Statements SINUS RHYTHM INCOMPLETE RIGHT BUNDLE BRANCH BLOCK MODERATE T-WAVE ABNORMALITY, CONSIDER ANTERIOR ISCHEMIA BASELINE ARTIFACT- I, III, AVR, AVL, V2 ABNORMAL ECG No previous ECG available for comparison Electronically Signed On 06-21-2025 14:21:11 WIND TURBINE ENGINEER by Aston Holder D.O.
--- OUTSIDE RECORDS SUMMARY | 2025-06-21 14:44 | XMS_ITS | Clinical Summary ---
Author Organization [facility] [address] Address [address] [place] [phone] Care Team Providers Care Information Technology Project Manager Name Role Phone Carlton Tenorio MD Primary Care Provider [phone] Allergies No known active allergies Medications budesonide-form [...] 3 days then stop 30 tablet 5 06/26/20 25 Active amoxicillin-cla vulanate (AUGMENTIN) 875-125 mg per tablet Take 1 tablet by mouth 2 (two) times a day for 10 days 20 tablet 5 06/24/20 25 Active Active Problems Problem Noted Date Diagnosed [...] Encounters Date Type Department Care Team Description 06/14/2025 8:30 AM TEXTILE CLOTHING AND FOOTWEAR MECHANIC Telemedicine [facility] Medical [facility] Virtual Care [address] [place] [phone] Joie Eubanks NP Acute non-recurrent sinusitis, unspecified location (Primary Dx) 06/14/2025 Patient Self-Triage [facility] [address] [place] [address] Mychart, Generic Provider from Last 3 Months [...] on file Legal Sex Female 8:40 PM TEXTILE CLOTHING AND FOOTWEAR MECHANIC Gender Identity Not on file Sexual Orientation [...] series) 2013 Depression Screening 11/28/2022 11/28/2021, 10/03/2021 Influenza Vaccine (#1) 2025 04/19/2022 DTaP/Tdap/Td Vaccine (4 - Td or Tdap) 10/17/2032 10/17/2022, 04/02/2014, 07/20/2013 Pneumococcal vaccine <65 (1 of 2 - PCV) 12/30/2033 Postponed from 06/16 (Provider's clinical decision) Insurance [facility] Care Teams Information Technology Project Manager Relationship Specialty Start Date End Date Carlton Tenorio MD PCP - General Family Medicine 10/03/21
== END 2025-06-21 13:28 | disposition home or self-care (01) ==
LOC: ANHSURGERY 13:32
PROVIDERS: PCP Nurse Practitioner Family; Visit Provider Obstetrics & Gynecology
DX: Z01.818 Encounter for other preprocedural examination (principal); F17.210 Nicotine dependence, cigarettes, uncomplicated; N80.9 Endometriosis, unspecified; I45.10 Unspecified right bundle-branch block; R94.31 Abnormal electrocardiogram [ECG] [EKG]
CPT/HCPCS: 36415; 86850; 86900; 86901; 93005

== ENCOUNTER 2025-06-21 15:31 | Emergency (ER) | payer OTHER, SELFPAY ==
--- NOTE | ~2025-06-21 | XR_ITS ---
EXAMINATION: XR chest 2V 06/21/2025 16:04 INDICATION: Chest pain PROCEDURE: 2 view chest COMPARISON: 07/30/2023 FINDINGS: The lungs are clear. The cardiomediastinal silhouette is within normal limits. There are no pleural effusions. There is no pneumothorax suspected. IMPRESSION: 1: NO ACUTE CARDIOPULMONARY DISEASE. Reviewed, dictated and finalized at location I. L ESTIMATOR
--- NOTE | 2025-06-21 15:33 | ECG_ITS ---
Test Date: 2025-06-21 15:43:33 Measurements Intervals [place] Rate: 88 P: 28 MS: 140 QRS: 27 QRSD: 97 T: 1 QT: 373 QTc: 452 Interpretive Statements SINUS RHYTHM POSSIBLE LEFT ATRIAL ENLARGEMENT INCOMPLETE RIGHT BUNDLE BRANCH BLOCK BORDERLINE ST-T WAVE ABNORMALITY ANT/INF LEADS BASELINE ARTIFACT- I, II, III, AVR, AVF, V1-V2 BORDERLINE ECG Compared to ECG 06/21/2025 14:03:26 Possible ischemia no longer present Electronically Signed On 06-21-2025 19:33:54 RADIOGRAPHIC TECHNOLOGIST by Aston Holder D.O.
[2025-06-21 15:48] VITALS: BP 140/101; PULSE 76; RESP 21; TEMP 36.4; O2SAT 99
[2025-06-21 16:00] LABS: Hematocrit 38.4 % (37.0-47.0); Hemoglobin 13.4 g/dL (12.0-15.0); Immature Granulocyte Percent A 1.1 % (0-0.5); Lymphocytes Absolute Auto 2.70 K/mm3 (0.9-3.2); Mean Corpuscular HGB Conc 34.9 g/dl (32-36); Mean Corpuscular Hemoglobin 32.8 pg (26-34); Mean Corpuscular Volume 94.1 fl (80-100); Nucleated Red Blood Cells Absolute Auto 0.000 K/mm3 (0.0-0.012); Nucleated Red Blood Cells Perc 0.0 % (0.0-0.2); Platelet Count Result 171 k/mm3 (150-375); Red Blood Count 4.08 M/mm3 (4.2-5.4); White Blood Count 7.4 K/mm3 (4.5-10.0)
--- NOTE | 2025-06-21 16:02 | ED.CHESTPAIN ---
HPI - Chest Pain General Chief Complaint: Chest Pain Stated Complaint: abnormal EKG Time Seen by Provider: 06/21/25 15:34 History of Present Illness HPI narrative: 40-year-old female presents to the ER from outpatient preop testing in patient was injury to cyst removed. Patient denies chest pain, palpitation, shortness of breath or difficulty breathing Related Data Home Medications ?Medication ?Instructions ?Recorded ?Confirmed ?Last Taken ?Type dicyclomine 10 mg capsule 10 mg PO QID PRN abdominal pain 06/07/25 06/07/25 Unknown History diphenoxylate-atropine 2.5 1 tablet PO TID PRN diarrhea 06/07/25 06/07/25 Unknown History mg-0.025 mg tablet (Lomotil) fluticasone propionate 50 1 spray intranasal DAILY PRN nasal 06/07/25 06/07/25 Unknown History mcg/actuation nasal congestion spray,suspension lidocaine 5 % topical patch 1 patch topical DAILY PRN pain 06/07/25 06/07/25 Unknown History loperamide 2 mg capsule 2 mg PO Q6H PRN loose stool 06/07/25 06/07/25 Unknown History Allergies Allergy/AdvReac Type Severity Reaction Status Date / Time cat dander Allergy Swelling Verified 06/07/25 15:00 of the Eye Review of Systems Review of Systems: All systems reviewed & are unremarkable except as noted in HPI and below PMFSH Past Medical History Medical History BMI 28.0-28.9,adult Diarrhea Abdominal pain Anxiety Endometriosis Smoker Asthma Surgical History Surgical History History of tubal ligation H/O laparoscopy Family History Family History Grandparent Diabetes mellitus Hypertension Heart disease Mother Hypertension Lung cancer Sibling Depression Father Brain aneurysm Other Lung cancer Other Cerebrovascular accident Social History Social History Smoking packs per day: 1 Smoking cigarettes per day: 20.0 Years smoked: 21 Smoking pack-years: 21.00 Smoking status: Former smoker Tobacco type: cigarettes Second hand tobacco smoke exposure: No Smoking end date: 05/03/25 Alcohol intake: current Drinks per week: 5 Alcohol use details: Socially Substance use: never Substance use type: does not use Lack of Transportation: No Lack of Food: Never True Current Housing: I Have Housing Concerned About Future Housing: No Difficulty Paying Gas/Electric Bills: No Difficulty Paying for Meds: No Currently Unemployed: No Education: High School Diploma/GED Difficulty w/ Childcare or Family Care: No Living arrangements: with family Additional living arrangements comments: FIANCE AND DAUGHTER Occupation/Education: occupation 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[employer] Gender identity (if verbalized by the patient): Female Spiritual care concerns: No Exam Const: General: healthy appearing and no acute distress Nutritional Appearance: well nourished Resp: Effort & Inspection: normal respiratory effort Auscultation: clear to auscultation bilaterally Cardio: Rate: regular rate Rhythm: regular rhythm Skin: General skin exam: normal color Neuro: General: patient oriented x3 and moves all extremities Extrem: General: normal to inspection Psych: Mental Status: mental status grossly normal Affect: normal affect Attitude: cooperative Course Vital Signs Vital signs: Vital Signs Temperature 36.4 C 06/21/25 15:48 Pulse Rate 76 06/21/25 15:48 Respiratory Rate 21 H 06/21/25 15:48 Blood Pressure 140/101 H 06/21/25 15:48 Pulse Oximetry 99 06/21/25 15:48 Oxygen Delivery Room Air 06/21/25 15:48 Temperature 36.4 C 06/21/25 15:48 Pulse Rate 82 06/21/25 16:34 Respiratory Rate 20 06/21/25 16:34 Blood Pressure 130/88 06/21/25 16:34 Pulse Oximetry 96 06/21/25 16:34 Oxygen Delivery Room Air 06/21/25 16:22 MDM MDM Narrative Medical decision making narrative: In summary: Burn female presented the ER from preop testing for abnormal EKG. Patient is asymptomatic. EKG showed possible left atrial enlargement with an incomplete right bundle-branch. He will lab work was reassuring. Chest x-ray showed no acute cardiopulmonary disease. Discussed findings with Dr. Carey, he states no additional evaluation is necessary. Followed up with Dr. Root regarding the ER findings, he requests patient to show up for her outpatient procedure as previously scheduled. Differential Diagnosis Differential Diagnosis: And abnormal EKG, CAD Lab Data 06/21/25 15:55 06/21/25 16:29 Labs: Lab Results 06/21/25 06/21/25 Range/Units 15:55 16:29 WBC 7.4 (4.5-10.0) K/mm3 RBC 4.08 L (4.2-5.4) M/mm3 Hgb 13.4 (12.0-15.0) g/dL Hct 38.4 (37.0-47.0) % MCV 94.1 (80-100) fl MCH 32.8 (26-34) pg MCHC 34.9 (32-36) g/dl RDW 13.2 (11.5-14.5) % Plt Count 171 D (150-375) k/mm3 MPV 9.1 (7.4-10.4) fl Immature Gran % (Auto) 1.1 H (0-0.5) % Neut % (Auto) 51.8 (45.5-73.1) % Lymph % (Auto) 36.7 (18.3-44.2) % [place] % (Auto) 7.9 (2.6-8.5) % Eos % (Auto) 1.5 (0-4.4) % Baso % (Auto) 1.0 (0.2-1.2) % Lymph # (Auto) 2.70 (0.9-3.2) K/mm3 [place] # (Auto) 0.6 (0.1-0.6) K/mm3 Eos # (Auto) 0.1 (0-0.3) K/mm3 Baso # (Auto) 0.1 (0.0-0.1) K/mm3 Abs Immat Gran (auto) 0.08 H (0.00-0.031) K/mm3 Absolute Neuts (auto) 3.8 (1.3-6.7) K/mm3 Absolute Nucleated RBC 0.000 (0.0-0.012) K/mm3 Nucleated RBC % 0.0 (0.0-0.2) % PT 13.7 (11.1-14.7) Seconds INR 1.0 APTT 23.7 (22.3-36.8) Seconds Sodium 132 L (137-145) mmol/L Potassium 3.4 (3.4-5.0) mmol/L Chloride 103 (98-107) mmol/L Carbon Dioxide 20 L (22-30) mmol/L Anion Gap 9 (4-12) mmol/L BUN 10 (7-17) mg/dL Creatinine 0.61 L (0.7-1.0) mg/dL Estim Creat Clear Calc 104 ml/min Estimated GFR > 60 (59 - ) Glucose 102 (65-110) mg/dL Calcium 9.1 (8.4-10.2) mg/dL Total Bilirubin 1.0 (0.2-1.3) mg/dL AST 43 H (14-36) U/L ALT 52 H (6-35) U/L Alkaline Phosphatase 57 (38-126) U/L Troponin I < 0.012 (0.000-0.034) ng/mL Total Protein 7.7 (6.3-8.2) g/dL Albumin 4.7 (3.5-5.1) g/dL Lipase 27 (23-300) U/L Imaging Data Radiologist's impression: ITS Impressions Chest X-Ray 06/21/25 16:06 IMPRESSION: 1: NO ACUTE CARDIOPULMONARY DISEASE. Discharge Plan Discharge Clinical Impression: Abnormal ECG Patient Disposition: Home Condition: Stable Instructions: Antibiotic Form Patient Language: Ivorian Prescriptions: No Action loperamide 2 mg capsule 2 mg PO Q6H PRN (Reason: loose stool) diphenoxylate-atropine [Lomotil] 2.5-0.025 mg tablet 1 tablet PO TID PRN (Reason: diarrhea) lidocaine 5 % adhesive patch,medicated 1 patch topical DAILY PRN (Reason: pain) Rx Instructions: leave on most painful area for up to 12 hrs fluticasone propionate 50 mcg/actuation spray,suspension 1 spray intranasal DAILY PRN (Reason: nasal congestion) Rx Instructions: administer into each nostril dicyclomine 10 mg capsule 10 mg PO QID PRN (Reason: abdominal pain) cholecalciferol (vitamin D3) 125 mcg (5,000 unit) capsule 125 mcg PO DAILY Qty: 90 0RF bupropion HCl (smoking deter) 150 mg tablet extended release 12 hr 150 mg PO BID Qty: 60 5RF omeprazole 40 mg capsule,delayed release(DR/EC) See Rx Instructions .ROUTE .COMPLEX Qty: 30 3RF Dose Instruction: Take 1 capsule by mouth once daily Rx Instructions: Take 1 capsule by mouth once daily albuterol sulfate [Ventolin HFA] 90 mcg/actuation HFA aerosol inhaler 1 inh inhalation BID PRN (Reason: shortness of breath or wheezing) Qty: 6.7 0RF Follow-up/Referrals: Ángel Carey MD [Physician, Cardiology] Marina Celeste APRN [Primary Care Provider, Family Practice] Time of Disposition: 17:07
[2025-06-21 16:13] LABS: INR 1.0; Prothrombin Time 13.7 Seconds (11.1-14.7)
[2025-06-21 16:14] LABS: Partial Thromboplastin Time 23.7 Seconds (22.3-36.8)
[2025-06-21] MEDS: IPRATROPIUM 0.5 MG/ALBUTEROL SULFATE 2.5 MG (BASE) AMPUL.NEB 3 ML INHALATION (16:20)
[2025-06-21 16:22] VITALS: PULSE 77; RESP 16; O2SAT 99
--- NOTE | 2025-06-21 16:32 | PC.NURSE ---
Pt. states she is not having any CP at this time and therefore, does not want the protocoled aspirin. She will alert this RN if the CP returns.
[2025-06-21 16:34] VITALS: BP 130/88; PULSE 82; RESP 20; O2SAT 96
--- OUTSIDE RECORDS SUMMARY | 2025-06-21 16:43 | XMS_ITS | Clinical Summary ---
Author Organization [facility] [address] Address [address] [place] [phone] Care Team Providers Care Machine Cell Tuber Name Role Phone Carlton Tenorio MD Primary Care Provider [phone] Allergies No known active allergies Medications budesonide-form [...] Department Care Team Description 06/14/2025 8:30 AM PARLIAMENTARY ARCHIVIST Telemedicine [facility] Virtual Care [address] [place] [phone] Joie Eubanks NP Acute non-recurrent sinusitis, unspecified location (Primary Dx) 06/14/2025 Patient Self-Triage [facility] [address] [place] [address] Mychart, Generic Provider from Last [...] on file Legal Sex Female 8:40 PM PARLIAMENTARY ARCHIVIST Gender Identity Not on file Sexual Orientation [...] Postponed from 06/16 (Provider's clinical decision) Insurance [facility] Care Teams Machine Cell Tuber Relationship Specialty Start Date End Date Carlton Tenorio MD PCP - General Family Medicine 10/03/21
[2025-06-21 16:46] LABS: Alanine Aminotransferase 52 U/L (6-35); Albumin Level 4.7 g/dL (3.5-5.1); Alkaline Phosphatase 57 U/L (38-126); Anion Gap 9 mmol/L (4-12); Aspartate Amino Transferase 43 U/L (14-36); Bilirubin,Total 1.0 mg/dL (0.2-1.3); Blood Urea Nitrogen 10 mg/dL (7-17); Calcium 9.1 mg/dL (8.4-10.2); Carbon Dioxide 20 mmol/L (22-30); Chloride 103 mmol/L (98-107); Estimated CRCL calculation 104 ml/min; Estimated Glomerular Filt Rate > 60; Glucose 102 mg/dL (65-110); Lipase 27 U/L (23-300); Potassium 3.4 mmol/L (3.4-5.0); Sodium 132 mmol/L (137-145); Total Protein 7.7 g/dL (6.3-8.2)
[2025-06-21 16:58] LABS: Troponin I < 0.012 ng/mL (0.000-0.034)
--- OUTSIDE RECORDS SUMMARY | 2025-06-21 17:05 | XMS_ITS | Clinical Summary ---
Author Organization [facility] [address] Address [address] [place] [phone] Care Team Providers Care Leaf Size Picker Name Role Phone Carlton Tenorio MD Primary Care Provider [phone] Allergies No known active allergies Medications budesonide-form [...] Department Care Team Description 06/14/2025 8:30 AM FRONT MAN Telemedicine [facility] Medical [facility] Virtual Care [address] [place] [phone] Joie Eubanks NP Acute non-recurrent sinusitis, unspecified location (Primary Dx) 06/14/2025 Patient Self-Triage [facility] [address] [place] [address] Mychart, Generic Provider from Last [...] on file Legal Sex Female 8:40 PM FRONT MAN Gender Identity Not on file Sexual Orientation [...] Postponed from 06/16 (Provider's clinical decision) Insurance [facility] Care Teams Leaf Size Picker Relationship Specialty Start Date End Date Carlton Tenorio MD PCP - General Family Medicine 10/03/21
[2025-06-21 17:08] VITALS: BP 130/88; PULSE 88; RESP 20; O2SAT 96
== END 2025-06-21 17:10 | disposition home or self-care (01) ==
PROVIDERS: Emergency Medicine; Emergency Provider Nurse Practitioner Family; PCP Nurse Practitioner Family
DX: R94.31 Abnormal electrocardiogram [ECG] [EKG] (principal); I45.10 Unspecified right bundle-branch block; J45.909 Unspecified asthma, uncomplicated; N80.9 Endometriosis, unspecified; F41.9 Anxiety disorder, unspecified; Z87.891 Personal history of nicotine dependence
CPT/HCPCS: 36415; 71046; 80053; 83690; 84484; 85025; 85610; 85730; 93005; 94640; 99284

== ENCOUNTER 2025-06-22 01:01 | Day surgery (SDC) | payer OTHER, SELFPAY ==
[2025-06-07 15:10] VITALS: BMI 28.0
--- NOTE | 2025-06-07 15:44 | PC.NURSE ---
[facility] has started construction of its new state of the art ER which will open Spring 2026. With this, we anticipate parking may be a challenge for some our surgical patients and families. Parking spaces are limited but are available for all Surgical, obstetrics, and ER patients sharing this lot. If you arrive and find you are having a hard time finding a parking space, please note that we understand the challenges, please drive around the hospital and park near Hospital Entrance 1. When you enter this entrance, you can ask a volunteer to direct or take you back to the surgical waiting area to check in. We appreciate everyone?s understanding of these expected challenges while we build for your future. Report to the Outpatient Waiting Room, entrance under the green pavilion located off [address], at time ___8:15AM___ on date ___06/22/25___. Planned Procedure Time: __10:15AM .? Time changes happen often and if your time is changed the preop area will call you the afternoon before. - You and your visitor will be asked to self-screen and do not enter if you have any COVID symptoms. Please call surgeon if you need to reschedule. - A mask is optional within the hospital at this time. Patients may have clear liquids (water, carbonated beverages, clear teas, apple juice) until 3 hours prior to surgery (7:15AM) with a maximum of 20 ounces. - No food from midnight until time of surgery and no smoking, or chewing tobacco (or any form of nicotine). No chewing gum, candy or mints. Take only the following medications with a SIP of water on the morning of surgery: ____BUPROPION___ MAY USE ALBUTEROL INHALER NEEDED. DO NOT STOP ANY OF YOUR OTHER PRESCRIPTION MEDICATIONS PRIOR TO SURGERY EXCEPT THE FOLLOWING Hold all vitamins and supplements for 3 days per anesthesiologist. LAST DOSE 06/18/25 Medications to discontinue per physician NONE Date to take last dose Please no make-up, nail belarusian, hairspray, perfume, deodorant, or body powder the day of surgery.? No jewelry (including any body piercings) or valuables the day of surgery, leave them at home.? Please take a shower or bath the night before, or the morning of, surgery with an antibacterial soap.? Wear comfortable, loose fitting clothing.? - Jewelry must be removed prior to entering the operating room.? Rings and piercings that are not removed may be cut off. - The hospital will not accept responsibility for valuables.? - Please leave all valuables, including medications, at home the day of surgery. If you are going home after surgery, a licensed boat driver must drive you home.? - NO public transportation without another adult if you receive anesthesia. - We recommend that an adult stay with you for 24 hours following discharge. - We also recommend that you do not drive, make important decision, drink alcoholic beverages, or take any drugs that were not prescribed by your health care provider for at least 24 hours after your discharge time. Follow any additional instructions given to you from your surgeon. Telephone instructions given to ___PATIENT and asked if any additional questions and then verbalized understanding. Patient advised to call surgeon office or pre surgery nurse liaison [phone] if any additional questions.
--- NOTE | 2025-06-19 07:00 | P.HP_ITS ---
H&P: HPI History of Present Illness Date/Time: 06/19/25 07:00 Chief Complaint: Right ovarian cyst and pelvic pain dyspareunia with a history of endometriosis Narrative: This is a 30 0 status post hysterectomy admitted for laparoscopy and right cystectomy possible right oophorectomy. There appears to be a right-sided complex cyst on ultrasound. She does have a history of endometriosis and pelvic adhesions and will undergo lysis of adhesions and destruction of endometriosis if found. Risks and benefits reviewed including but not exclusive of , aspiration, bleeding, transfusion, perforation injury to bowel, bladder, ureters, or other internal organs need for open laparotomy. She received the ACOG handout entitled laparoscopy. She had all questions answered. She asked to proceed Review of Systems Review of Systems: All systems reviewed & are unremarkable except as noted in HPI and below PMFSH Past Medical History Medical History BMI 28.0-28.9,adult Diarrhea Abdominal pain Anxiety Endometriosis Smoker Asthma Surgical History Surgical History History of tubal ligation H/O laparoscopy Family History Family History Grandparent Diabetes mellitus Hypertension Heart disease Mother Hypertension Lung cancer Sibling Depression Father Brain aneurysm Other Lung cancer Other Cerebrovascular accident Social History Social History Smoking packs per day: 1 Smoking cigarettes per day: 20.0 Years smoked: 21 Smoking pack-years: 21.00 Smoking status: Former smoker Tobacco type: cigarettes Second hand tobacco smoke exposure: No Smoking end date: 05/03/25 Alcohol intake: current Drinks per week: 5 Alcohol use details: Socially Substance use: never Substance use type: does not use Lack of Transportation: No Lack of Food: Never True Current Housing: I Have Housing Concerned About Future Housing: No Difficulty Paying Gas/Electric Bills: No Difficulty Paying for Meds: No Currently Unemployed: No Education: High School Diploma/GED Difficulty w/ Childcare or Family Care: No Living arrangements: with family Additional living arrangements comments: FIANCE AND DAUGHTER Occupation/Education: occupation 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 Route 04/13/25 06/07/25 Rx release .COMPLEX #30 caps albuterol sulfate 90 mcg/actuation 1 inh inhalation BI D PRN shortness 05/09/25 06/07/25 Rx aerosol inhaler (Ventolin HFA) of breath or wheezing # 6.7 grams dicyclomine 10 mg capsule 10 mg PO QID PRN abdominal p ain 06/07/25 06/07/25 History diphenoxylate-atropine 2.5 1 tablet PO TID PRN diarrhe a 06/07/25 06/07/25 History mg-0.025 mg tablet (Lomotil) fluticasone propionate 50 1 spray intranasal DAILY PRN nasal 06/07/25 06/07/25 History mcg/actuation nasal congestion spray,suspension lidocaine 5 % topical patch 1 patch topical DAILY PRN pain 06/07/25 06/07/25 History loperamide 2 mg capsule 2 mg PO Q6H PRN loose stool 06/07/25 06/07/25 History Allergies Allergy/AdvReac Type Severity Reaction Status Date / Time cat dander Allergy Swelling Verified 06/07/25 15:00 of the Eye Exam Const: General: cooperative, healthy appearing and comfortable Nutritional Appearance: average body habitus Orientation/consciousness: oriented to person, oriented to place and oriented to time HENMT: Head: normal to inspection Resp: Effort & Inspection: normal respiratory effort Cardio: Rate: regular rate Rhythm: regular rhythm Heart sounds: S1 normal heart sound present and S2 normal heart sound present GI: Inspection: normal to inspection : External Female Exam: normal external appearance Speculum Exam - Vagina: normal appearance of the vagina Speculum Exam - Cervix: Cervix absent Bimanual exam- vagina & uterus: uterus absent Bimanual Exam- Adnexa, other: tender (Right-sided cyst) bilaterally Assessment and Plan Assessment and plan (1) Pelvic pain: Code(s): R10.20 - Pelvic and perineal pain unspecified side Status: Acute (2) Right ovarian cyst: Code(s): N83.201 - Unspecified ovarian cyst, right side Status: Acute Plan Proceed with laparoscopy and right ovarian cystectomy possible right oophorectomy possible destruction of endometriosis and possible lysis of adhesions
[2025-06-22] VITALS (9 sets, daily range): BP systolic 111–151; BP diastolic 68–124; PULSE 59–110; RESP 14–20; TEMP 36.1–36.7; O2SAT 95–100
--- OUTSIDE RECORDS SUMMARY | 2025-06-22 01:03 | XMS_ITS | Clinical Summary ---
Author Organization [facility] [address] Address [address] [place] [id number] Care Team Providers Care National Sales Consultant Name Role Phone Carlton Tenorio MD Primary Care Provider [phone] Allergies No known active allergies Medications budesonide-form [...] Department Care Team Description 06/14/2025 8:30 AM VMWARE ENGINEER Telemedicine [facility] Virtual [facility] [address] [place] [phone] Joie Eubanks NP Acute non-recurrent sinusitis, unspecified location (Primary Dx) 06/14/2025 Patient Self-Triage [facility] [address] [place] [address] Mychart, Generic Provider from Last [...] on file Legal Sex Female 8:40 PM VMWARE ENGINEER Gender Identity Not on file Sexual Orientation [...] Postponed from 06/16 (Provider's clinical decision) Insurance [facility] Care Teams National Sales Consultant Relationship Specialty Start Date End Date Carlton Tenorio MD PCP - General Family Medicine 10/03/21
--- OUTSIDE RECORDS SUMMARY | 2025-06-22 01:03 | XMS_ITS | Data Portability ---
Author Organization [facility] [employer], Main Office Address [address] [place] [address] Assessment No assessment recorded. Plan of Treatment Reminders Order Date Submit Date Provider Last Modified By Organization Details Last Modified Time Details Appointments None recorded. Lab TSH, serum, reflex free T4 2022 023 [email or web address] 4 [facility] (Lab), [address] [place], [address], 3 12:19:40 CBC 2022 023 [email or web address] 4 [facility] (Lab), [address] [place], [address], 3 12:19:40 CMP, serum or plasma 2022 023 [email or web address] 4 [facility] (Lab), [address] [place], [address], 3 12:19:40 vitamin D, 25-hydroxy, total, serum 2022 023 [email or web address] 4 [facility] (Lab), [address] [place], [address], 3 12:19:40 vitamin B12 + folate, serum or blood 2022 023 [email or web address] 4 [facility] (Lab), [address] [place], [address], 12:19:40 Referral None recorded. Procedures None recorded. Surgeries None recorded. Imaging XR, chest 2022 023 [email or web address] [address] [facility], [address], [place], [address], 3 09:04:14 Medication Orders omeprazole 40 mg capsule,del ayed release 2022 023 [facility], [address] [place], [address], 09:56:00 dicyclomine 20 mg tablet 2022 023 [facility], [address] [place], [address], 3 09:56:04 prednisone 20 mg tablet 2022 023 [facility], [address] [place], [address], 3 09:56:00 doxycycline hyclate 100 mg capsule 2022 023 [facility], [address] [place], [address], 3 09:56:01 Flonase Allergy Relief 50 mcg/actuati on nasal spray,suspe nsion 2022 023 [facility], [address] [place] [address], [address], 3 09:55:58 Patient TargetsNo targets recorded. Patient InstructionsNo instructions recorded. Reason for Referral None Reported. Results Created Date Observation Date Name Description Value Unit Range Abnormal Flag Note LastModifiedBy Organization Detail LastModifiedTime 07/31/19 24 07/30/2023 XR, chest No observ ation record ed. [email or web address] [facility] [address] [facility] [address], [place], [address], 10/07/2023 12:24:08 Result Notes None recorded. Problems Name Problem SNOMED Code Status Onset Date Resolution Date Notes Provider Name and Address Organization Details Recorded Time Asthma 101599091 Active 2022 Anisha avelar CMA null, [facility] 3 09:17:15 Chronic diarrhea 544479516 Active 2022 CITLALLI Hernandez [address], [address], [place], [address], [facility] [employer] [facility] 3 09:35:50 Upper respiratory infection 33753688 Active 2022 CITLALLI Hernandez [address], [address], [place], [address], [facility] Tindie [facility] 3 09:37:35 Vitamin D deficiency 76316853 Active 2022 CITLALLI Hernandez [address], [address], [place], [address], [facility] [employer] [facility] 3 09:45:09 Cobalamin deficiency 026405241 Active 2022 CITLALLI Hernandez [address], [address], [place], [address], [facility] Tindie [facility] 3 09:45:17 Chronic abdominal pain 532118722 Active 2022 CITLALLI Hernandez [address], [address], [place], [address], [facility] Tindie [facility] 3 09:47:47 Endometriosis of pelvis 17435001 Active 2022 CITLALLI Hernandez [address], [address], [place], [address], [facility] Tindie [facility] 3 09:50:22 Endometriosis of uterus 31418336 Active 2022 CITLALLI Hernandez [address], [address], [place], [address], [facility] Tindie [facility] 3 09:50:35 Loss of hair 170079593 Active 2022 CITLALLI Hernandez [address], [address], [place], [address], [employer] 3 09:57:58 Conjunctivitis 5426445 Active 2022 NICOLE White [address], [address], [place], [address], [employer] 3 17:34:12 Problem Notes None recorded. 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 Procedure Notes None recorded. Medical Equipment None Reported. Allergies No known drug allergies Medications Name Sig Start Date Stop Date Status Note LastModified by Organization Details LastModified Time Prescription - Renewal active Not Available Not Available No t Available prednisone 10 mg tablet TAKE 4 TABLETS [...] 2 PUFFS BY MOUTH EVERY 6 HOURS active Not Available Not [...] height Body temperature Heart rate Oxygen saturation Systolic And Diastolic Provider Name and Address Organization Details Last Updated DateTime 3 91849.4 5 g 25.1 kg/m2 165.1 cm 97.4 [degF] 82 /min 98 % 122/80 mm[Hg] Anisha avelar CMA [facility] [employer] 09:14:25 Social History Question Answer Notes LastModified by Organizat ion Details LastModified Time Tobacco Smoking Status Current Every Day Smoker Anisha August CMA [facility] [employer] 06/23/2023 09:19:18 What Is Your Level Of Caffeine Consumption? Occasional [email or web address] Information not available 06/23/2023 What Type Of Diet Are You Following? REGULAR [email or web address] Information not available 06/23/2023 At What Age Did You Start Smoking Tobacco? 18 [email or web address] Information not available 06/23/2023 How Much Tobacco Do You Smoke? 0.5 PPD [email or web address] Information not available 06/23/2023 Do You Have Any Dietary Restrictions? No [email or web address] Information not available 06/23/2023 Sex: Female Functional Status Question Answer Note LastModified by Organizat ion Details LastModified Time What is your level of alcohol consumption? Occasional [email or web address] Information not available 06/23/2023 What is your exercise level? Occasional Information not available 06/23/2023 Mental Status None recorded. Family History Relationship Description Onset Age of this Age Resolved Age Notes LastModified by Organization Details LastModified Time Mother Hypertensive disorder [email or web address] Not available 09:18:01 Mother Type 2 diabetes mellitus [email or web address] Not available 09:18:18 Maternal Grandmother Hypertensive disorder [email or web address] Not available 09:18:01 Medical History No medical history recorded. Gynecological HistoryNo gynecological history recorded. Obstetrics History GPAL:G 0 P 0 0 0 0 Past Encounters Encounter ID Performer Location Encounter Start Date Encounter Closed Date Diagnosis/Indication Diagnosis SNOMED-CT Code Diagnosis ICD10 Code Diagnosis IMO Codes Diagnosis Note [id number] Sarahy Forrest MD [facility] Primary Care [address] [place] [address] 06/23/2023 09:05:07 06/23/2023 11:09:15 Asthma 924845139 J45.909 She previously was on symbicort but has only been using albuterol in recent years.Has not seen pulmonolog ist in years.Othe r than current acute illness, symptoms have been stable.She has had symptoms x 4 weeks now and lots of wheezing on exam.Plan to do abx and steroids, if still no improvemen t, XR order given. Chronic diarrhea 1292811 09 K52.9 Has been ongoing problem for last 15 years. States it has form sometimes but mainly watery. Has noticed blood one time, no mucous or undigested food.Colon oscopy 2021 at [facility].Will get labs today. Upper resp iratory infection 76617700 J06.9 Will do course of doxycyclin e, advised to start flonase.Co ntinue otc treatments .She has not been covid tested, so I have advised her to do test to r/o. Vitamin D deficiency 347 [address]240 E55.9 Not currently on supplement . No previous diagnosis. Cobalamin deficiency 190 840516 E53.8 Not currently on supplement . No previous diagnosis. Chronic ab dominal pain 313589650 R10.9 Has been for last 5 years, mainly left sided. Pain started after a complicate d delivery, but she is unsure if back shoe worker or GI related (also hx of endometrio sis). They thought possibly more GI, so she had colonoscop ywhich was normal.Roe l do trial of PPI and dicyclomin e.Will consider imaging if still no improvemen t. Endometrio sis of uterus 70591507 N80.00 S/p hysterecto my. Pt. believes she still has one ovary.If no positive findings on GI work-up, may need to consider back shoe worker referral to evaluate further. Loss of hair 644157947 L 65.9 New symptoms. Has also noticed [...] Lopez Member ID Guarantor Name 04/01/2024 1 [facility] (MEDICAID HMO) [id number] Natasha Lin [id number] Natasha Lin Notes Date Note Type Note [...] Not sure if it was GI or back shoe worker related. She had colonoscopy done to evaluate pain and states it was all normal.-She is also concerned about hair thinning/graying and states her nails have become more brittle. She thinks she may have a problem with her vitamins. CITLALLI Hernandez [address] [place] [address] [address], [place], [address], [place] [facility] 06/23/2023 10:04:25 OBGyn Episode No OBEpisode recorded.
--- NOTE | 2025-06-22 08:46 | WPDHPUPDATE1 ---
History and Physical Update Update Date/Time: 06/22/25 08:46 History and Physical has been reviewed, including an updated exam of the patient. There are NO changes in the patient's condition. Risks, benefits, and alternatives have been discussed and questions answered. Patient agrees to proceed with procedure. Patient had a questionably EKG was seen in the ER and it was deemed okay by Cardiology
[2025-06-22] MEDS: ACETAMINOPHEN 500 MG TABLET 1000 MG PO (12:53)
[2025-06-22] MEDS: LACTATED RINGERS 1,000 ML 30 ML IV CONT (12:53)
--- NOTE | 2025-06-22 12:53 | P.PNAN_ITS ---
Anes - Initial Pre Proc Eval Procedure: Operation Date: 06/22/25 13:30 Proposed Procedures p Laparoscopy with Right Ovarian Cystectomy, Destruction of Endometriosis - Spenser Quintero MD Date/Time: 06/22/25 12:53 Surgeon: Spenser Quintero MD Pre Op Diagnosis: Pelvic Pain,Dyspareunia,Endometriosis Patient Data Age: 40 Gender: F Height: 1.63 m Weight: 74 kg Last Vital Signs Temp 36.7 C 06/22/25 12:51 Pulse 70 06/22/25 12:51 Resp 16 06/22/25 12:51 BP 146/92 H 06/22/25 12:51 Pulse Ox 100 06/22/25 12:51 O2 Del Method Room Air 06/22/25 12:51 Allergies Allergy/AdvReac Type Severity Reaction Status Date / Time cat dander Allergy Swelling Verified 06/22/25 12:49 of the Eye Home Medications ?Medication ?Instructions ?Recorded ?Confirmed ?Type cholecalciferol (vitamin D3) 125 125 mcg PO DAILY #90 caps 05/25/24 06/07/25 Rx mcg (5,000 unit) capsule bupropion HCl (smoking deter) 150 150 mg PO BID #60 ta bs 03/23/25 06/07/25 Rx mg tablet,12 hr sustained-release(smoking deterrent) omeprazole 40 mg capsule,delayed See Rx Instructions . Route 04/13/25 06/07/25 Rx release .COMPLEX #30 caps albuterol sulfate 90 mcg/actuation 1 inh inhalation BI D PRN shortness 05/09/25 06/07/25 Rx aerosol inhaler (Ventolin HFA) of breath or wheezing # 6.7 grams dicyclomine 10 mg capsule 10 mg PO QID PRN abdominal p ain 06/07/25 06/07/25 History diphenoxylate-atropine 2.5 1 tablet PO TID PRN diarrhe a 06/07/25 06/07/25 History mg-0.025 mg tablet (Lomotil) fluticasone propionate 50 1 spray intranasal DAILY PRN nasal 06/07/25 06/07/25 H istory mcg/actuation nasal congestion spray,suspension lidocaine 5 % topical patch 1 patch topical DAILY PRN pain 06/07/25 06/07/25 History loperamide 2 mg capsule 2 mg PO Q6H PRN loose stool 06/07/25 06/07/25 History hydrocodone 5 mg-acetaminophen 325 1 tablet PO Q4H PRN pain #20 tabs 06/22/25 Rx mg tablet Patient hx anesthesia problems: none Family hx anesthesia problems: none Results Review: All pre-operative results and documents have been reviewed as part of the pre-operative evaluation. [facility] Past Medical History Medical History BMI 28.0-28.9,adult Diarrhea Abdominal pain Anxiety Endometriosis Smoker Asthma Surgical History Surgical History History of tubal ligation H/O laparoscopy Family History Family History Grandparent Diabetes mellitus Hypertension Heart disease Mother Hypertension Lung cancer Sibling Depression Father Brain aneurysm Other Lung cancer Other Cerebrovascular accident Social History Social History Smoking packs per day: 1 Smoking cigarettes per day: 20.0 Years smoked: 21 Smoking pack-years: 21.00 Smoking status: Former smoker Tobacco type: cigarettes Second hand tobacco smoke exposure: No Smoking end date: 05/03/25 Alcohol intake: current Drinks per week: 5 Alcohol use details: Socially Substance use: never Substance use type: does not use Lack of Transportation: No Lack of Food: Never True Current Housing: I Have Housing Concerned About Future Housing: No Difficulty Paying Gas/Electric Bills: No Difficulty Paying for Meds: No Currently Unemployed: No Education: High School Diploma/GED Difficulty w/ Childcare or Family Care: No Living arrangements: with family Additional living arrangements comments: FIANCE AND DAUGHTER Occupation/Education: occupation 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[employer] Gender identity (if verbalized by the patient): Female Spiritual care concerns: No Anes - Eval Final PreProcedure Day of Procedure 06/22/25 12:53 Patient weight: overweight Heart: regular rate and rhythm Lungs: normal air movement Airway: Mallampati scale class II Neurological: alert and oriented Last oral intake: >/= 8 hours ASA classification: II Emergent: no Anesthetic plan: proceed Anesthesia type and monitoring: general ETT and standard monitoring Results Review: All pre-operative results and documents have been reviewed as part of the pre- operative evaluation. Informed Consent: The patient's anesthetic plan and its attendant risks and benefits were discussed with the patient/family/POA. Questions were solicited and answers provided to the satisfaction of the patient/family/POA.
[2025-06-22] MEDS: KETOROLAC 15 MG/ML VIAL (*BKC) IV PUSH (12:54)
[2025-06-22 12:55] LABS: BEDSIDEPREGUCG Negative (Negative)
--- NOTE | 2025-06-22 13:28 | W.PM.PROC2 ---
Procedure Note - Detailed Date of Procedure 06/22/25 Pre-op Diagnosis Pelvic Pain,Dyspareunia,Endometriosis Post-op Diagnosis Same Procedure Performed Laparoscopy is destruction of right ovarian cyst destruction of endometriosis Surgeon Spenser Quintero MD Anesthesia General Indications 40-year-old female status post Hyst LSO with right ovarian cyst pelvic Findings Uterus left tube right tube absent moderate-sized cyst small of endometriosis small adhesions Description of Procedure Patient was prepped draped in sterile fashion placed in the dorsal lithotomy position. Under excellent general trach anesthesia a sponge stick was placed in the vagina the bladder emptied of clear urine weighted speculum was. The gloves were changed. An infraumbilical incision made the Veress needle passed in the abdomen. Abdomen filled with CO2 gas [id number]. The 5mm trocar advanced under visualization injury seen patient placed in Trendelenburg and a suprapubic incision made. The 5mm trocar advanced under visualization the above findings were noted. The no small areas of endometriosis were seen along the vaginal cuff and these were point cauterized at 35 w per 2nd there was a small area the right uterosacral which was also a small right ovarian cyst was seen this was opened linear fashion some adhesions were seen on the left these were sharply dissected. Irrigation was undertaken the remainder the pelvis. Clear the lower sites removed. The gas removed from the abdomen. The upper site removed the incisions closed with 4 Monocryl glue. Patient was awakened went recovery in satisfactory condition. All sponge, needle, instrument counts were correct. There were no immediate complications Estimated Blood Loss 5 Drains No Packing No Pathology None sent Complications No immediate complications Condition Stable Disposition PACU
[2025-06-22] MEDS: fentaNYL CITRATE INJ (*CRX) 100 MCG/2 ML VIAL 25 MCG IV PUSH ×4 (13:56→14:04)
[2025-06-22] MEDS: HYDROmorphone HCL INJ (*CRX) 1 MG/ML SYR 0.5 MG IV PUSH ×2 (14:12→14:25)
[2025-06-22] MEDS: oxyCODONE HCL (*CRX) 5 MG TAB IR PO ×2 (15:11→16:00)
--- NOTE | 2025-06-22 16:02 | SUR.PHASEII ---
Patient's IV removed and patient got dressed to discharge home. With activity patient's pain elevated to 10/10. Dr. Mckenna notified. Additional 5mg Oxycodone ordered. See MAR for administration details.
== END 2025-06-22 16:26 | disposition home or self-care (01) ==
PROVIDERS: PCP Nurse Practitioner Family; Visit Provider Obstetrics & Gynecology
PROC: (CPT 49320; principal; 2025-06-22 13:30)
DX: N80.3C1 Endometriosis of the right uterosacral ligament, unspecified depth (principal); N80.8 Other endometriosis; N83.201 Unspecified ovarian cyst, right side; N73.6 Female pelvic peritoneal adhesions (postinfective); N94.10 Unspecified dyspareunia; Z90.710 Acquired absence of both cervix and uterus; Z87.891 Personal history of nicotine dependence
CPT/HCPCS: 58662; A9270; J1100; J1171; J1885; J2003; J2250; J2405; J2704; J3010; J7030; J7120

== ENCOUNTER 2025-06-22 11:54 | Outpatient (CLI) | payer OTHER, SELFPAY | END 2025-06-22 11:55 | disposition home or self-care (01) | LOC: ANHLAB 11:55 | PROVIDERS: PCP Nurse Practitioner Family; Visit Provider Nurse Practitioner Family | DX: K59.1 Functional diarrhea (principal); R10.84 Generalized abdominal pain | CPT/HCPCS: 87045; 87046; 87427 ==